=== PATIENT | male | born 1995 | race African-American/Black ===

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

== ENCOUNTER 2017-02-02 20:28 | Emergency (ER) | payer MEDICAID ==
[~2017-02-02] VITALS: Ht 180.3 cm; Wt 99.8 kg
[2017-02-02] MEDS ORDERED: HALOPERIDOL LACTATE 5 MG/ML INJ VIAL ONE (21:15)
[2017-02-02] MEDS ORDERED: diphenhdrAMINE HCL 50 MG/1 ML VL ONE (21:15)
[2017-02-02] MEDS ORDERED: LORazepam 2MG/ML-1ML VIAL ONE (21:15)
[2017-02-02 21:41] LABS: Basophils # (auto) 0 uL; Basophils % (auto) 0.6 % (0.0-2.0); Eosinophils # (auto) 0.3 uL; Eosinophils % (auto) 4.2 % (0.0-7.0); Hematocrit 46.7 % (41.0-53.0); Hemoglobin 15.8 g/dL (13.5-17.5); Lymphocytes # (auto) 3.6 uL; Mean Corpuscular Hemoglobin 31.5 pg (28.0-32.0); Mean Corpuscular Hgb Conc. 33.9 g/dL (32.0-36.0); Mean Platelet Volume 8.5 fL (6.9-10.8); Monocytes # (auto) 0.6 uL; Monocytes % (auto) 7.5 % (0.0-12.0); Neutrophils % (auto) 39.7 % (37.0-80.0); Nucleated Red Blood Cells % 0.1 %; Platelet Count (auto) 303 10^3/uL (140-450); Red Cell Distribution Width 13.4 % (11.8-14.3); White Blood Cell 7.5 10^3/uL (4.4-10.8)
[2017-02-02 21:50] LABS: Albumin 4.2 g/dL (3.4-5.0); BUN/Creatinine Ratio 6.6; Bilirubin, Total 0.3 mg/dL (0.2-1.0); Calcium 9.1 mg/dL (8.5-10.1); Potassium 3.3 mmol/L (3.5-5.1); Total Protein 7.7 g/dL (6.4-8.2)
[2017-02-03 02:36] LABS: Urine Bilirubin Negative (Negative); Urine Blood Negative /uL (Negative); Urine Color Yellow (Yellow); Urine Glucose Normal (Normal); Urine Ketone 1+ (Negative); Urine Mucus FEW (None Seen); Urine Nitrite Negative (Negative); Urine RBC 7 /hpf (0 - 3); Urine Squamous Epithelial Cell FEW /hpf (<5); Urine WBC Clumps PRESENT /hpf (None Seen); Urine pH 5.5 (5.0-8.0)
[2017-02-03] MEDS ORDERED: SODIUM CHLORIDE 0.9% 1,000 ML IV ONE (03:00)
[2017-02-03] MEDS ORDERED: cefTRIAXone 1GM/50ML D5W 50 ML IV ONE (03:00)
[2017-02-03] MEDS ORDERED: HALOPERIDOL LACTATE 5 MG/ML INJ VIAL IM ONE (04:00)
[2017-02-03] MEDS ORDERED: LEVOFLOXACIN 500MG 100 ML IV ONE (04:00)
[2017-02-03] MEDS ORDERED: diphenhdrAMINE HCL 50 MG/1 ML VL IM ONE (04:00)
[2017-02-03] MEDS ORDERED: LORazepam 2MG/ML-1ML VIAL IM ONE (04:00)
[2017-02-03 09:38] VITALS: BP 125/92
== END 2017-02-03 11:39 | disposition home or self-care (01) ==
LOC: EDBD 20:28 → ER 20:39
DX: R41.82 Altered mental status, unspecified (principal); R45.851 Suicidal ideations; N39.0 Urinary tract infection, site not specified; Z88.0 Allergy status to penicillin; F17.210 Nicotine dependence, cigarettes, uncomplicated; Z59.0 Homelessness; Z00.8 Encounter for other general examination
CPT/HCPCS: 36415; 80053; 80307; 80320; 81001; 85025; 96361; 96365; 96372; 99284; J1200; J1630; J1956; J2060; J7030

== ENCOUNTER 2017-02-25 12:40 | Emergency (ER) | payer MEDICAID ==
[~2017-02-25] VITALS: Ht 177.8 cm; Wt 86.2 kg
[2017-02-25 13:14] LABS: Urine Bilirubin Negative (Negative); Urine Blood TRACE /uL (Negative); Urine Color Yellow (Yellow); Urine Glucose Normal (Normal); Urine Ketone 1+ (Negative); Urine Nitrite Negative (Negative); Urine RBC 8 /hpf (0 - 3); Urine Squamous Epithelial Cell FEW /hpf (<5); Urine pH 6.5 (5.0-8.0)
[2017-02-25 15:31] VITALS: BP 133/62
== END 2017-02-25 16:28 | disposition home or self-care (01) ==
LOC: ER 12:40
DX: J45.909 Unspecified asthma, uncomplicated (principal); N39.0 Urinary tract infection, site not specified; R04.0 Epistaxis; F17.210 Nicotine dependence, cigarettes, uncomplicated; Z59.0 Homelessness
CPT/HCPCS: 71020; 81001; 93005

== ENCOUNTER 2018-10-29 14:23 | Emergency (ER) | payer MEDICAID ==
[~2018-10-29] VITALS: Ht 180.3 cm; Wt 85.3 kg
[2018-10-29 16:07] VITALS: BP 147/73
[2018-10-29] MEDS ORDERED: ONDANSETRON ODT 4 MG TAB PO ONE (16:45)
[2018-10-29 17:04] LABS: Urine Bacteria NONE SEEN /hpf (None Seen); Urine Blood Negative /uL (Negative); Urine Mucus FEW (None Seen); Urine Specific Gravity 1.029 (1.001-1.035); Urine WBC 2 /hpf (0 - 3)
== END 2018-10-29 17:17 | disposition home or self-care (01) ==
LOC: ER 14:31
DX: J02.9 Acute pharyngitis, unspecified (principal); R11.0 Nausea; F17.210 Nicotine dependence, cigarettes, uncomplicated; F12.10 Cannabis abuse, uncomplicated
CPT/HCPCS: 71046; 81001; 93005; 99284; Q0162

== ENCOUNTER 2020-07-30 02:38 | Emergency (ER) | payer SELFPAY ==
[~2020-07-30] VITALS: Ht 182.9 cm; Wt 79.4 kg
[2020-07-30 02:41] VITALS: BP 128/53
[2020-07-30 04:09] LABS: Urine Amorphous Crystal FEW /hpf (None Seen); Urine Bacteria FEW /hpf (None Seen); Urine Blood Negative /uL (Negative); Urine Hyaline Cast FEW /lpf (0 - 2); Urine Mucus FEW (None Seen); Urine Specific Gravity 1.028 (1.001-1.035); Urine WBC <1 /hpf (0 - 3)
[2020-07-30 04:22] LABS: Alcohol, Urine < 3.0 mg/dL (0-10); Amphetamine Screen, Urine POSITIVE (NEGATIVE); Barbiturate Scree,Urine NEGATIVE (NEGATIVE); Benzodiazephine Screen, Urine NEGATIVE (NEGATIVE); Cannabinoid Screen, Urine POSITIVE (NEGATIVE); Cocaine Screen, Urine NEGATIVE (NEGATIVE); Opiate Scree,Urine NEGATIVE (NEGATIVE); Phencyclidine Screen, Urine NEGATIVE (NEGATIVE)
== END 2020-07-30 04:15 | disposition left against medical advice (07) ==
LOC: ER 02:44
DX: R21 Rash and other nonspecific skin eruption (principal); R22.33 Localized swelling, mass and lump, upper limb, bilateral; R22.2 Localized swelling, mass and lump, trunk; Z53.21 Procedure and treatment not carried out due to patient leaving prior to being seen by health care provider
CPT/HCPCS: 80307; 81001; J7030

== ENCOUNTER 2020-11-02 00:32 | Emergency (ER) | payer SELFPAY ==
[~2020-11-02] VITALS: Ht 182.9 cm; Wt 86.2 kg
[2020-11-02 00:35] VITALS: BP 131/88
== END 2020-11-02 05:44 | disposition home or self-care (01) ==
LOC: EDBD 00:32 → ER 00:41
DX: S23.41XA Sprain of ribs, initial encounter (principal); S73.101A Unspecified sprain of right hip, initial encounter; R51.9 Headache, unspecified; F17.210 Nicotine dependence, cigarettes, uncomplicated; F12.10 Cannabis abuse, uncomplicated; J45.909 Unspecified asthma, uncomplicated; Z88.0 Allergy status to penicillin; Y08.89XA Assault by other specified means, initial encounter; Y93.89 Activity, other specified; Y92.89 Other specified places as the place of occurrence of the external cause; Y99.8 Other external cause status
CPT/HCPCS: 70450; 71250; 73502

== ENCOUNTER 2022-12-26 07:41 | Emergency (ER) | payer MEDICAID ==
[~2022-12-26] VITALS: Ht 170.2 cm; Wt 54.0 kg
[2022-12-26 08:28] VITALS: BP 145/73; PULSE 105; RESP 18; TEMP 97.4; O2SAT 99
[2022-12-26] MEDS ORDERED: RIS1T PO (22:04)
[2022-12-26] MEDS ORDERED: OLAN20TA PO (22:04)
== END 2022-12-26 09:14 | disposition home or self-care (01) ==
LOC: EDUNIT# 07:41 → EDBD 07:41 → ER 07:41
DX: F15.90 Other stimulant use, unspecified, uncomplicated (principal); F17.210 Nicotine dependence, cigarettes, uncomplicated; F12.90 Cannabis use, unspecified, uncomplicated; J45.909 Unspecified asthma, uncomplicated; Z88.0 Allergy status to penicillin

== ENCOUNTER → 2022-12-26 | Emergency (ER) | payer MEDICAID ==
[~2022-12-26] VITALS: Ht 180.3 cm; Wt 73.0 kg
[~2022-12-26] MED LIST: OLAN20TA PO; OLANZapine 5 MG TAB PO ONE; RIS1T PO; risperiDONE 1 MG TAB PO ONE
[2022-12-26 19:05] VITALS: BP 132/96; PULSE 128; RESP 18; O2SAT 98
== END | disposition home or self-care (01) ==
LOC: ER 19:05
DX: F20.9 Schizophrenia, unspecified (principal); J45.909 Unspecified asthma, uncomplicated; F17.210 Nicotine dependence, cigarettes, uncomplicated; Z76.0 Encounter for issue of repeat prescription

== ENCOUNTER 2022-12-27 09:19 | Emergency (ER) | payer MEDICAID ==
[~2022-12-27] VITALS: Ht 182.9 cm; Wt 74.7 kg
[~2022-12-27 09:19] MED LIST changes: -OLANZapine 5 MG TAB PO ONE; -risperiDONE 1 MG TAB PO ONE
[2022-12-27 09:24] VITALS: BP 121/82; TEMP 97.3
[2022-12-27 10:30] VITALS: PULSE 88; RESP 16; O2SAT 100
== END 2022-12-27 10:49 | disposition home or self-care (01) ==
LOC: ER 09:19
DX: J45.909 Unspecified asthma, uncomplicated (principal); F17.210 Nicotine dependence, cigarettes, uncomplicated

== ENCOUNTER 2022-12-30 07:05 | Emergency (ER) | payer MEDICAID ==
[~2022-12-30] VITALS: Ht 180.3 cm; Wt 72.1 kg
[2022-12-30 07:41] VITALS: BP 135/76; PULSE 88; RESP 16; TEMP 97.8; O2SAT 98
[2022-12-30] MEDS ORDERED: IPRATROPIUM BROM 0.5 MG/2.5ML INH SOL NEB ONE (08:15)
[2022-12-30] MEDS ORDERED: ALBUTEROL SULF 2.5 MG/0.5ML(0.5%) NEB SOLN NEB ONE (08:15)
[2022-12-30] MEDS ORDERED: AZIT-81 PO ×3 (08:45→08:55)
[2022-12-30] MEDS ORDERED: PROM1SOL4 PO ×3 (08:45→08:55)
[2022-12-30] MEDS ORDERED: ALBU108A5 IN ×3 (08:45→08:55)
[2022-12-30] MEDS ORDERED: AZITTAB PO (23:31)
[2022-12-30] MEDS ORDERED: ALBUAER3 IN (23:31)
[2022-12-30] MEDS ORDERED: PRED20TA2 PO (23:31)
== END 2022-12-30 08:55 | disposition home or self-care (01) ==
LOC: ER 07:05
DX: J45.901 Unspecified asthma with (acute) exacerbation (principal); J03.90 Acute tonsillitis, unspecified; F17.210 Nicotine dependence, cigarettes, uncomplicated
CPT/HCPCS: 71045; 94640; 99283; J7644

== ENCOUNTER 2022-12-30 21:58 | Emergency (ER) | payer MEDICAID ==
[~2022-12-30] VITALS: Ht 180.3 cm; Wt 76.0 kg
[~2022-12-30 21:58] MED LIST changes: +ALBU108A5 IN; +AZIT-81 PO; +PROM1SOL4 PO
[2022-12-30 22:23] LABS: Basophils # (auto) 0 10 ^3/uL (0-0.2); Basophils % (auto) 0.6 % (0.0-2.0); Eosinophils # (auto) 0.2 10 ^3/uL (0-0.8); Eosinophils % (auto) 2.2 % (0.0-7.0); Hematocrit 42.7 % (41.0-53.0); Hemoglobin 14.1 g/dL (13.5-17.5); Lymphocytes # (auto) 2.9 10 ^3/uL (0.4-5.4); Lymphocytes % (auto) 40.6 % (10.0-50.0); Mean Corpuscular Hemoglobin 30.1 pg (28.0-32.0); Mean Corpuscular Hgb Conc. 33.1 g/dL (32.0-36.0); Monocytes # (auto) 0.6 10 ^3/uL (0-1.3); Monocytes % (auto) 8.1 % (0.0-12.0); Neutrophils # (auto) 3.4 10 ^3/uL (1.6-8.6); Neutrophils % (auto) 48.5 % (37.0-80.0); Nucleated Red Blood Cells % 0.1 %; White Blood Cell 7.1 10^3/uL (4.4-10.8)
[2022-12-30 22:36] LABS: Albumin 4.2 g/dL (3.2-4.8); Alkaline Phosphatase 85 U/L (46-116); Anion Gap 6.2 (5-15); Aspartate Aminotransferase 12 U/L (13-40); BUN/Creatinine Ratio 7.6 (10.0-20.0); Bilirubin, Total 0.3 mg/dL (0.2-1.0); Blood Urea Nitrogen 9 mg/dL (9-23); Calcium 9.3 mg/dL (8.5-10.1); Carbon Dioxide 25.8 mmol/L (20-30); Chloride 105 mmol/L (98-107); Glucose 130 mg/dL (74-106); Potassium 3.5 mmol/L (3.5-5.1); Sodium 137 mmol/L (136-145); Total Protein 6.9 g/dL (5.7-8.2)
[2022-12-30 22:42] LABS: Alanine Aminotransferase < 9 U/L (7-40)
[2022-12-30] MEDS ORDERED: SODIUM CHLORIDE 0.9% 1,000 ML IV ONE (23:30)
[2022-12-30] MEDS ORDERED: LORazepam 0.5 MG TAB PO ONE (23:30)
[2022-12-30] MEDS ORDERED: ALBUAER3 IN (23:31)
[2022-12-30] MEDS ORDERED: AZITTAB PO (23:31)
[2022-12-30] MEDS ORDERED: PRED20TA2 PO (23:31)
[2022-12-31 02:06] VITALS: BP 125/68; PULSE 116; RESP 19; TEMP 98.9; O2SAT 98
== END 2022-12-31 02:09 | disposition home or self-care (01) ==
LOC: ER 21:58
DX: R07.89 Other chest pain (principal); F12.90 Cannabis use, unspecified, uncomplicated; J20.9 Acute bronchitis, unspecified; J45.909 Unspecified asthma, uncomplicated; F20.9 Schizophrenia, unspecified; F17.210 Nicotine dependence, cigarettes, uncomplicated; Z79.899 Other long term (current) drug therapy; Z88.0 Allergy status to penicillin
CPT/HCPCS: 36415; 71045; 80053; 83880; 84443; 84484; 85025; 93005; 96360; 99285; J7030

== ENCOUNTER 2022-12-31 21:18 | Emergency (ER) | payer MEDICAID ==
[~2022-12-31] VITALS: Ht 182.9 cm; Wt 80.1 kg
[~2022-12-31 21:18] MED LIST changes: +ALBUAER3 IN; +AZITTAB PO; +PRED20TA2 PO
[2022-12-31 21:35] VITALS: BP 123/56; RESP 16; O2SAT 97
[2022-12-31 21:46] VITALS: PULSE 101
== END 2023-01-01 02:45 | disposition left against medical advice (07) ==
LOC: ER 21:20
DX: F99 Mental disorder, not otherwise specified (principal); Z53.21 Procedure and treatment not carried out due to patient leaving prior to being seen by health care provider

== ENCOUNTER 2023-01-15 04:22 | Emergency (ER) | payer MEDICAID ==
[~2023-01-15] VITALS: Ht 182.9 cm; Wt 72.5 kg
[2023-01-15] MEDS ORDERED: MIDAZOLAM HCL 5 MG/ML-1ML VIAL IM ONE (06:15)
[2023-01-15 08:02] VITALS: PULSE 78; RESP 22; O2SAT 97
[2023-01-15 11:28] LABS: Basophils # (auto) 0 10 ^3/uL (0-0.2); Basophils % (auto) 0.6 % (0.0-2.0); Eosinophils # (auto) 0.4 10 ^3/uL (0-0.8); Eosinophils % (auto) 5.9 % (0.0-7.0); Hematocrit 42.2 % (41.0-53.0); Hemoglobin 13.6 g/dL (13.5-17.5); Lymphocytes # (auto) 3.1 10 ^3/uL (0.4-5.4); Lymphocytes % (auto) 40.7 % (10.0-50.0); Mean Corpuscular Hemoglobin 29.8 pg (28.0-32.0); Mean Corpuscular Hgb Conc. 32.1 g/dL (32.0-36.0); Mean Corpuscular Volume 92.9 fL (80.0-100.0); Monocytes # (auto) 0.6 10 ^3/uL (0-1.3); Monocytes % (auto) 8.2 % (0.0-12.0); Neutrophils # (auto) 3.3 10 ^3/uL (1.6-8.6); Neutrophils % (auto) 44.6 % (37.0-80.0); Red Blood Cells 4.55 10^6/uL (4.5-5.90); Red Cell Distribution Width 13.4 % (11.8-14.3); White Blood Cell 7.5 10^3/uL (4.4-10.8)
[2023-01-15 12:13] LABS: Alanine Aminotransferase 14 U/L (7-40); Albumin 3.6 g/dL (3.2-4.8); Alkaline Phosphatase 111 U/L (46-116); Anion Gap 3 (5-15); Aspartate Aminotransferase 20 U/L (13-40); BUN/Creatinine Ratio 17.2 (10.0-20.0); Blood Alcohol < 3.0 mg/dL (<10); Blood Urea Nitrogen 17 mg/dL (9-23); Calcium 8.8 mg/dL (8.7-10.4); Carbon Dioxide 30 mmol/L (20-30); Chloride 106 mmol/L (98-107); Glucose 111 mg/dL (74-106); Potassium 3.9 mmol/L (3.5-5.1); Sodium 139 mmol/L (136-145)
[2023-01-15 12:14] LABS: Bilirubin, Total 0.3 mg/dL (0.2-1.0); Total Protein 5.6 g/dL (5.7-8.2)
[2023-01-15 13:00] VITALS: BP 125/72; TEMP 98.8
[2023-01-15 13:54] LABS: Amphetamine Screen, Urine Pos (NEGATIVE); Barbiturate Scree,Urine Neg (NEGATIVE); Benzodiazephine Screen, Urine Pos (NEGATIVE); Cocaine Screen, Urine Neg (NEGATIVE); Opiate Scree,Urine Neg (NEGATIVE); Phencyclidine Screen, Urine Neg (NEGATIVE)
[2023-01-15 13:55] LABS: Cannabinoid Screen, Urine Pos (NEGATIVE)
[2023-01-15 14:08] LABS: Urine Bacteria NONE SEEN /hpf (None Seen); Urine Blood Negative /uL (Negative); Urine Clarity Clear (Clear); Urine Color Yellow (Yellow); Urine Protein, UAD Negative (Negative); Urine Specific Gravity 1.025 (1.001-1.035); Urine Urobilinogen Normal (Negative); Urine WBC 1 /hpf (0 - 3); Urine pH 6.5 (5.0-8.0)
[2023-01-15] MEDS ORDERED: LORazepam 2MG/ML-1ML VIAL IV ONE (17:45)
[2023-01-15] MEDS ORDERED: LORazepam 2MG/ML-1ML VIAL IM ONE (18:00)
[2023-01-15 20:00] VITALS: PULSE 80; RESP 18; O2SAT 98
== END 2023-01-15 19:40 | disposition home or self-care (01) ==
LOC: EDBD 04:22 → ER 04:22
DX: F15.10 Other stimulant abuse, uncomplicated (principal); F41.9 Anxiety disorder, unspecified; F20.9 Schizophrenia, unspecified; J45.909 Unspecified asthma, uncomplicated; F17.210 Nicotine dependence, cigarettes, uncomplicated; F19.90 Other psychoactive substance use, unspecified, uncomplicated; Z79.899 Other long term (current) drug therapy
CPT/HCPCS: 36415; 71045; 80053; 80307; 80320; 81001; 85025; 96372; 99285; J2060; J2250

== ENCOUNTER 2023-04-19 01:27 | Emergency (ER) | payer MEDICAID ==
[~2023-04-19] VITALS: Ht 182.9 cm; Wt 71.4 kg
[~2023-04-19 01:27] MED LIST changes: +ACET500T58 PO; +CEPH500C PO; +CLIN300C70 PO
[2023-04-19 06:37] VITALS: BP 110/74; PULSE 105; RESP 15; TEMP 98; O2SAT 99
== END 2023-04-19 06:41 | disposition home or self-care (01) ==
LOC: ER 01:27
DX: L03.116 Cellulitis of left lower limb (principal); F15.10 Other stimulant abuse, uncomplicated; F12.10 Cannabis abuse, uncomplicated; J45.909 Unspecified asthma, uncomplicated; F17.210 Nicotine dependence, cigarettes, uncomplicated; Z88.0 Allergy status to penicillin

== ENCOUNTER 2023-04-19 15:01 | Emergency (ER) | payer MEDICAID ==
[~2023-04-19] VITALS: Ht 180.3 cm; Wt 70.7 kg
[2023-04-19 15:22] VITALS: BP 107/68; PULSE 115; RESP 16; TEMP 99.4; O2SAT 99
== END 2023-04-19 15:49 | disposition home or self-care (01) ==
LOC: ER 15:01
DX: Z48.00 Encounter for change or removal of nonsurgical wound dressing (principal); J45.909 Unspecified asthma, uncomplicated; F17.210 Nicotine dependence, cigarettes, uncomplicated; F12.10 Cannabis abuse, uncomplicated; F15.10 Other stimulant abuse, uncomplicated; Z88.0 Allergy status to penicillin

== ENCOUNTER 2023-04-21 01:52 | Inpatient (IN) | payer MEDICAID ==
[~2023-04-21] VITALS: Ht 182.9 cm; Wt 71.6 kg
[2023-04-21 03:27] VITALS: PULSE 112; RESP 12; O2SAT 97
[2023-04-21] MEDS ORDERED: diphenhdrAMINE HCL 50 MG/1 ML VL IV ONE (04:00)
[2023-04-21] MEDS ORDERED: VANCOMYCIN 1GM/200ML 200 ML IV ONE (04:15)
[2023-04-21] MEDS ORDERED: LORazepam 2MG/ML-1ML VIAL IV ONE (04:15)
[2023-04-21] MEDS ORDERED: LACTATED RINGER'S 1,950 ML IV ONE (04:15)
[2023-04-21] MEDS ORDERED: MIDAZOLAM HCL 2MG/2ML 2ml VIAL (1mg/ml) IV ONE (04:30)
[2023-04-21 04:50] LABS: Basophils # (auto) 0 10 ^3/uL (0-0.2); Eosinophils # (auto) 0.1 10 ^3/uL (0-0.8); Hemoglobin 12.1 g/dL (13.5-17.5); Lymphocytes # (auto) 2.1 10 ^3/uL (0.4-5.4); Monocytes # (auto) 0.5 10 ^3/uL (0-1.3); Monocytes % (auto) 6.8 % (0.0-12.0); Neutrophils # (auto) 4.3 10 ^3/uL (1.6-8.6)
[2023-04-21 04:51] LABS: Basophils % (auto) 0.5 % (0.0-2.0); Eosinophils % (auto) 2.1 % (0.0-7.0); Lymphocytes % (auto) 29.9 % (10.0-50.0); Mean Corpuscular Hemoglobin 31.3 pg (28.0-32.0); Mean Corpuscular Hgb Conc. 33.6 g/dL (32.0-36.0); Mean Corpuscular Volume 93.3 fL (80.0-100.0); Neutrophils % (auto) 60.7 % (37.0-80.0); Red Blood Cells 3.86 10^6/uL (4.5-5.90); Red Cell Distribution Width 12.7 % (11.8-14.3)
[2023-04-21 04:58] LABS: Alanine Aminotransferase 13 U/L (7-40); Alkaline Phosphatase 83 U/L (46-116); Anion Gap 7 (5-15); Aspartate Aminotransferase 19 U/L (13-40); BUN/Creatinine Ratio 8.5 (10.0-20.0); Blood Urea Nitrogen 7 mg/dL (9-23); Calcium 9.4 mg/dL (8.5-10.1); Carbon Dioxide 28 mmol/L (20-30); Chloride 103 mmol/L (98-107); Glucose 127 mg/dL (74-106); Potassium 3.6 mmol/L (3.5-5.1); Sodium 138 mmol/L (136-145)
[2023-04-21 04:59] LABS: Albumin 3.9 g/dL (3.2-4.8); Bilirubin, Total 0.2 mg/dL (0.2-1.0); Total Protein 7.7 g/dL (5.7-8.2)
[2023-04-21 05:24] LABS: Erythrocyte Sedimentation Rate 85 mm/hr (0-20)
[2023-04-21] MEDS ORDERED: ACETAMINOPHEN 325 MG TAB PO PRN (05:45)
[2023-04-21] MEDS ORDERED: ONDANSETRON HCL 4 MG/2 ML VIAL IV PRN (05:45)
[2023-04-21] MEDS: PIPERACILLIN-TAZOB 3.375GM 100 ML IV ONE ×2 (06:08→06:13)
[2023-04-21 08:05] VITALS: PULSE 93; RESP 16; O2SAT 98
[2023-04-21 09:00] VITALS: BP 114/56; PULSE 93; RESP 16; TEMP 98.2; O2SAT 98
[2023-04-21] MEDS: HYDROcodone-ACET 5/325MG TAB PO PRN ×2 (09:26→18:51)
[2023-04-21] MEDS: hydrOXYzine 25 MG TAB or CAP PO PRN ×2 (09:26→16:58)
[2023-04-21] MEDS: cefTRIAXone 1GM/50ML D5W 50 ML IV SCH (09:26)
[2023-04-21] MEDS: busPIRone HCL 10 MG TAB PO SCH ×2 (11:17→21:25)
[2023-04-21 12:49] VITALS: BP 98/57; PULSE 98; RESP 14; TEMP 97.8; O2SAT 95
[2023-04-21] MEDS: CLINDAMYCIN 600MG IV 50 ML IV SCH ×3 (14:00→21:29)
[2023-04-21] MEDS ORDERED: LORazepam 0.5 MG TAB PO PRN (14:00)
[2023-04-21] MEDS ORDERED: diphenhdrAMINE HCL 25 MG CAP PO PRN (14:00)
[2023-04-21 14:44] LABS: Amphetamine Screen, Urine Pos (NEGATIVE)
[2023-04-21 14:45] LABS: Barbiturate Scree,Urine Neg (NEGATIVE); Benzodiazephine Screen, Urine Pos (NEGATIVE); Cocaine Screen, Urine Neg (NEGATIVE)
[2023-04-21 14:46] LABS: Cannabinoid Screen, Urine Pos (NEGATIVE); Opiate Scree,Urine Neg (NEGATIVE); Phencyclidine Screen, Urine Neg (NEGATIVE)
[2023-04-21 17:00] VITALS: BP 126/69; PULSE 93; RESP 14; TEMP 98.2; O2SAT 98
[2023-04-21 20:00] VITALS: PULSE 93; RESP 16; O2SAT 98
[2023-04-21] MEDS: OLANZapine 5 MG TAB PO SCH (21:26)
[2023-04-22] MEDS: CLINDAMYCIN 600MG IV 50 ML IV SCH ×3 (06:12→21:25)
[2023-04-22] MEDS: busPIRone HCL 10 MG TAB PO SCH ×2 (08:39→21:24)
[2023-04-22] MEDS: cefTRIAXone 1GM/50ML D5W 50 ML IV SCH (08:42)
[2023-04-22 10:53] VITALS: BP 110/71; PULSE 73; RESP 16; TEMP 98; O2SAT 95
[2023-04-22 13:11] LABS: Basophils # (auto) 0 10 ^3/uL (0-0.2); Basophils % (auto) 0.6 % (0.0-2.0); Eosinophils # (auto) 0.2 10 ^3/uL (0-0.8); Mean Corpuscular Hemoglobin 30.7 pg (28.0-32.0); Mean Corpuscular Hgb Conc. 33.1 g/dL (32.0-36.0); Monocytes # (auto) 0.5 10 ^3/uL (0-1.3)
[2023-04-22 13:15] LABS: Eosinophils % (auto) 3.1 % (0.0-7.0); Hemoglobin 12.9 g/dL (13.5-17.5); Lymphocytes # (auto) 2.5 10 ^3/uL (0.4-5.4); Lymphocytes % (auto) 36.2 % (10.0-50.0); Mean Corpuscular Volume 92.7 fL (80.0-100.0); Monocytes % (auto) 7.5 % (0.0-12.0); Neutrophils # (auto) 3.7 10 ^3/uL (1.6-8.6); Neutrophils % (auto) 52.6 % (37.0-80.0); Nucleated Red Blood Cells % 0.1 %; Red Blood Cells 4.21 10^6/uL (4.5-5.90)
[2023-04-22 13:30] LABS: Alanine Aminotransferase 10 U/L (7-40); Albumin 3.8 g/dL (3.2-4.8); Alkaline Phosphatase 74 U/L (46-116); Anion Gap 4 (5-15); Aspartate Aminotransferase 12 U/L (13-40); BUN/Creatinine Ratio 10.6 (10.0-20.0); Bilirubin, Total < 0.2 mg/dL (0.2-1.0); Blood Urea Nitrogen 12 mg/dL (9-23); Calcium 9.3 mg/dL (8.5-10.1); Carbon Dioxide 31 mmol/L (20-30); Chloride 103 mmol/L (98-107); Glucose 120 mg/dL (74-106); Potassium 4.3 mmol/L (3.5-5.1); Sodium 138 mmol/L (136-145); Total Protein 7.5 g/dL (5.7-8.2)
[2023-04-22] MEDS: HYDROcodone-ACET 5/325MG TAB PO PRN ×2 (16:11→21:24)
[2023-04-22 16:14] VITALS: BP 122/81; PULSE 66; RESP 14; O2SAT 95
[2023-04-22 20:00] VITALS: BP 122/67; PULSE 73; PULSE 76; RESP 16; TEMP 97.4; O2SAT 100
[2023-04-22] MEDS: MUPIROCIN 2% OINT 15gm or 22gm FOR MRSA NARES EACHNOSTRI SCH (21:19)
[2023-04-22] MEDS: OLANZapine 5 MG TAB PO SCH (21:24)
[2023-04-22 22:00] VITALS: BP 122/67; PULSE 73; RESP 16; TEMP 97.4; O2SAT 100
[2023-04-23 05:00] VITALS: TEMP 97.1
[2023-04-23] MEDS: CLINDAMYCIN 600MG IV 50 ML IV SCH ×3 (05:25→22:32)
[2023-04-23 08:00] VITALS: BP 104/57; PULSE 104; RESP 18; TEMP 97.1; O2SAT 97
[2023-04-23 09:00] VITALS: BP 119/57; PULSE 104; RESP 18; O2SAT 97
[2023-04-23] MEDS: MUPIROCIN 2% OINT 15gm or 22gm FOR MRSA NARES EACHNOSTRI SCH ×2 (09:25→22:29)
[2023-04-23] MEDS: cefTRIAXone 1GM/50ML D5W 50 ML IV SCH (09:25)
[2023-04-23] MEDS: busPIRone HCL 10 MG TAB PO SCH ×2 (09:25→22:29)
[2023-04-23 13:00] VITALS: BP 125/75; PULSE 88; RESP 18; TEMP 98; O2SAT 97
[2023-04-23] MEDS: HYDROcodone-ACET 5/325MG TAB PO PRN ×2 (15:45→22:29)
[2023-04-23 17:00] VITALS: BP 118/67; PULSE 82; RESP 18; TEMP 98.2; O2SAT 97
[2023-04-23 22:05] VITALS: BP 114/62; PULSE 71; RESP 18; O2SAT 97
[2023-04-23] MEDS: OLANZapine 5 MG TAB PO SCH (22:29)
[2023-04-24 05:00] VITALS: BP 125/69; PULSE 84; RESP 18; O2SAT 97
[2023-04-24] MEDS: CLINDAMYCIN 600MG IV 50 ML IV SCH (05:54)
[2023-04-24 08:00] VITALS: BP 118/80; PULSE 85; RESP 16; TEMP 97.6; O2SAT 97
[2023-04-24] MEDS: busPIRone HCL 10 MG TAB PO SCH (08:16)
[2023-04-24] MEDS: cefTRIAXone 1GM/50ML D5W 50 ML IV SCH (08:17)
[2023-04-24 08:51] VITALS: BP 118/80; PULSE 85; RESP 16; TEMP 97.6; O2SAT 97
[2023-04-24] MEDS: MUPIROCIN 2% OINT 15gm or 22gm FOR MRSA NARES EACHNOSTRI SCH (09:20)
[2023-04-24] MEDS ORDERED: HYDR-4902 PO (10:22)
[2023-04-24] MEDS ORDERED: LINE1TAB6 PO (10:22)
[2023-04-24] MEDS ORDERED: MUPI2CRE17 EX (10:31)
[2023-04-24] MEDS ORDERED: LINEZOLID 600MG TABLET PO SCH (11:00)
[2023-04-24] MEDS ORDERED: LINEZOLID 600MG TABLET PO ONE (11:00)
[2023-04-24] MEDS: HYDROcodone-ACET 5/325MG TAB PO PRN (12:51)
[2023-04-24 13:24] VITALS: BP 116/75; PULSE 95; RESP 18; TEMP 36.4; O2SAT 97
== END 2023-04-24 15:00 | disposition home or self-care (01) | DRG 383 ==
LOC: ER 01:52 → EDBD 01:52 → OVERFLOW 05:44 → EAST 07:47 → CENTRAL 19:17
PROVIDERS: ADMIT Family Medicine; ATTEND Family Medicine
DX: L03.116 Cellulitis of left lower limb (principal); N17.0 Acute kidney failure with tubular necrosis; B95.62 Methicillin resistant Staphylococcus aureus infection as the cause of diseases classified elsewhere; F15.10 Other stimulant abuse, uncomplicated; F17.210 Nicotine dependence, cigarettes, uncomplicated; F20.9 Schizophrenia, unspecified; J45.909 Unspecified asthma, uncomplicated; Z88.0 Allergy status to penicillin; Z59.00 Homelessness unspecified
CPT/HCPCS: 36415; 80053; 80307; 83605; 85025; 85652; 86141; 87077; 87081; 87186; 87205; 96365; 96375; G0378; J2250; J2543; J3490

== ENCOUNTER 2023-05-01 22:51 | Emergency (ER) | payer MEDICAID ==
[~2023-05-01] VITALS: Ht 182.9 cm; Wt 68.0 kg
[~2023-05-01 22:51] MED LIST changes: +HYDR-4902 PO; +LINE1TAB6 PO; +MUPI2CRE17 EX
[2023-05-01] MEDS ORDERED: SODIUM CHLORIDE 0.9% 1,000 ML IV ONE (23:30)
[2023-05-02 00:38] LABS: Basophils # (auto) 0 10 ^3/uL (0-0.2); Basophils % (auto) 0.6 % (0.0-2.0); Eosinophils # (auto) 0.1 10 ^3/uL (0-0.8); Eosinophils % (auto) 1.4 % (0.0-7.0); Hemoglobin 12.6 g/dL (13.5-17.5); Lymphocytes # (auto) 3.1 10 ^3/uL (0.4-5.4); Lymphocytes % (auto) 36.2 % (10.0-50.0); Mean Corpuscular Hemoglobin 30.6 pg (28.0-32.0); Mean Corpuscular Hgb Conc. 33.3 g/dL (32.0-36.0); Mean Corpuscular Volume 92.1 fL (80.0-100.0); Monocytes # (auto) 0.4 10 ^3/uL (0-1.3); Monocytes % (auto) 5.1 % (0.0-12.0); Neutrophils # (auto) 4.9 10 ^3/uL (1.6-8.6); Neutrophils % (auto) 56.7 % (37.0-80.0); Red Blood Cells 4.13 10^6/uL (4.5-5.90); Red Cell Distribution Width 13.3 % (11.8-14.3); White Blood Cell 8.7 10^3/uL (4.4-10.8)
[2023-05-02 00:59] LABS: Albumin 4.2 g/dL (3.2-4.8); Alkaline Phosphatase 99 U/L (46-116); Anion Gap 9 (5-15); Aspartate Aminotransferase 23 U/L (13-40); Bilirubin, Total 0.3 mg/dL (0.2-1.0); Blood Urea Nitrogen 10 mg/dL (9-23); Calcium 9.4 mg/dL (8.7-10.4); Carbon Dioxide 27 mmol/L (20-30); Chloride 102 mmol/L (98-107); Glucose 154 mg/dL (74-106); Potassium 3.2 mmol/L (3.5-5.1); Sodium 138 mmol/L (136-145); Total Protein 7.6 g/dL (5.7-8.2)
[2023-05-02 01:13] LABS: Alanine Aminotransferase < 9 U/L (7-40)
[2023-05-02 01:26] LABS: Erythrocyte Sedimentation Rate 36 mm/hr (0-20)
[2023-05-02 03:34] LABS: Blood Alcohol < 3.0 mg/dL (<10)
[2023-05-02 03:46] VITALS: BP 123/90; PULSE 86; RESP 19; TEMP 98; O2SAT 100
[2023-05-02] MEDS ORDERED: CLIN150C PO (04:01)
== END 2023-05-02 04:18 | disposition home or self-care (01) ==
LOC: EDBD 22:51 → ER 22:51 → EDUNIT# 22:51 → ER 05-02 04:18
DX: R55 Syncope and collapse (principal); L03.116 Cellulitis of left lower limb; F15.10 Other stimulant abuse, uncomplicated; I10 Essential (primary) hypertension; E11.9 Type 2 diabetes mellitus without complications; J45.909 Unspecified asthma, uncomplicated; F17.210 Nicotine dependence, cigarettes, uncomplicated; F12.10 Cannabis abuse, uncomplicated; Z79.2 Long term (current) use of antibiotics; Z79.899 Other long term (current) drug therapy; Z88.0 Allergy status to penicillin
CPT/HCPCS: 36415; 70450; 71250; 72125; 73700; 74176; 80053; 80320; 85025; 85652; 93005; 96360; 99284; J7030

== ENCOUNTER 2023-05-07 02:30 | Emergency (ER) | payer MEDICAID ==
[~2023-05-07] VITALS: Ht 182.9 cm; Wt 70.3 kg
[~2023-05-07 02:30] MED LIST changes: +CLIN150C PO
[2023-05-07 04:33] LABS: Basophils # (auto) 0.1 10 ^3/uL (0-0.2); Basophils % (auto) 0.7 % (0.0-2.0); Eosinophils # (auto) 0.2 10 ^3/uL (0-0.8); Eosinophils % (auto) 2.5 % (0.0-7.0); Hematocrit 36.6 % (41.0-53.0); Hemoglobin 12.1 g/dL (13.5-17.5); Lymphocytes # (auto) 2.9 10 ^3/uL (0.4-5.4); Lymphocytes % (auto) 37.3 % (10.0-50.0); Mean Corpuscular Hemoglobin 30.4 pg (28.0-32.0); Mean Corpuscular Hgb Conc. 33.1 g/dL (32.0-36.0); Monocytes # (auto) 0.4 10 ^3/uL (0-1.3); Monocytes % (auto) 5.1 % (0.0-12.0); Neutrophils # (auto) 4.3 10 ^3/uL (1.6-8.6); Neutrophils % (auto) 54.4 % (37.0-80.0); Red Blood Cells 3.98 10^6/uL (4.5-5.90); Red Cell Distribution Width 13.7 % (11.8-14.3); White Blood Cell 7.8 10^3/uL (4.4-10.8)
[2023-05-07 04:56] LABS: Albumin 4.1 g/dL (3.2-4.8); Alkaline Phosphatase 77 U/L (46-116); Anion Gap 8 (5-15); Aspartate Aminotransferase 24 U/L (13-40); Bilirubin, Total 0.4 mg/dL (0.2-1.0); Blood Urea Nitrogen 11 mg/dL (9-23); Calcium 9.3 mg/dL (8.7-10.4); Carbon Dioxide 26 mmol/L (20-30); Chloride 102 mmol/L (98-107); Glucose 149 mg/dL (74-106); Potassium 3.5 mmol/L (3.5-5.1); Sodium 136 mmol/L (136-145); Total Protein 7.4 g/dL (5.7-8.2)
[2023-05-07 05:01] LABS: Alanine Aminotransferase 9 U/L (7-40)
[2023-05-07 05:45] VITALS: BP 132/78; PULSE 95; RESP 18; TEMP 98; O2SAT 98
[2023-05-10] MEDS ORDERED: CLIN300C70 PO (09:04)
== END 2023-05-07 05:48 | disposition home or self-care (01) ==
LOC: ER 02:30 → EDBD 02:30 → ER 05:48
DX: R55 Syncope and collapse (principal); R07.89 Other chest pain; I10 Essential (primary) hypertension; E11.9 Type 2 diabetes mellitus without complications; J45.909 Unspecified asthma, uncomplicated; F17.210 Nicotine dependence, cigarettes, uncomplicated; Z59.00 Homelessness unspecified; Z79.2 Long term (current) use of antibiotics; Z79.899 Other long term (current) drug therapy; Z88.0 Allergy status to penicillin
CPT/HCPCS: 36415; 71045; 80053; 84484; 85025; 93005

== ENCOUNTER 2023-05-18 15:24 | Emergency (ER) | payer MEDICAID ==
[~2023-05-18] VITALS: Ht 180.3 cm; Wt 75.0 kg
[2023-05-18 15:43] VITALS: BP 127/82; PULSE 105; RESP 20; O2SAT 99
[2023-05-18] MEDS ORDERED: MECLIZINE HCL 25 MG TAB PO ONE (16:00)
== END 2023-05-18 16:20 | disposition left against medical advice (07) ==
LOC: ER 15:24 → EDUNIT# 15:24 → EDBD 15:24 → ER 16:06
DX: R42 Dizziness and giddiness (principal); J45.909 Unspecified asthma, uncomplicated; I10 Essential (primary) hypertension; F17.210 Nicotine dependence, cigarettes, uncomplicated; F12.10 Cannabis abuse, uncomplicated; F15.10 Other stimulant abuse, uncomplicated; Z59.00 Homelessness unspecified

== ENCOUNTER 2023-05-22 03:01 | Emergency (ER) | payer MEDICAID ==
[~2023-05-22] VITALS: Ht 175.3 cm; Wt 63.5 kg
[2023-05-22] MEDS ORDERED: CLIN300C70 PO (04:59)
[2023-05-22] MEDS ORDERED: cefTRIAXone SOD 1,000 MG VL IM ONE (05:00)
[2023-05-22 05:06] VITALS: BP 144/75; PULSE 85; RESP 22; TEMP 98; O2SAT 98
[2023-05-22] MEDS ORDERED: OLANZapine 5 MG TAB PO ONE (05:15)
== END 2023-05-22 07:11 | disposition home or self-care (01) ==
LOC: ER 03:01 → EDBD 03:01 → ER 06:59
DX: L03.116 Cellulitis of left lower limb (principal); F15.10 Other stimulant abuse, uncomplicated; F12.90 Cannabis use, unspecified, uncomplicated; F20.9 Schizophrenia, unspecified; F17.210 Nicotine dependence, cigarettes, uncomplicated; Z48.00 Encounter for change or removal of nonsurgical wound dressing; Z88.8 Allergy status to other drugs, medicaments and biological substances; Z79.899 Other long term (current) drug therapy
CPT/HCPCS: 96372; 99283; J0696

== ENCOUNTER 2023-05-26 04:09 | Emergency (ER) | payer MEDICAID ==
[~2023-05-26] VITALS: Ht 182.9 cm; Wt 72.7 kg
[2023-05-26 04:27] VITALS: BP 119/83; PULSE 105; RESP 18; O2SAT 98
[2023-05-26] MEDS ORDERED: CEPH500C PO (07:47)
== END 2023-05-26 06:26 | disposition left against medical advice (07) ==
LOC: ER 04:09
DX: N48.9 Disorder of penis, unspecified (principal); Z53.21 Procedure and treatment not carried out due to patient leaving prior to being seen by health care provider

== ENCOUNTER 2023-05-26 06:46 | Emergency (ER) | payer MEDICAID ==
[~2023-05-26] VITALS: Ht 165.1 cm; Wt 63.0 kg
[2023-05-26] MEDS ORDERED: cefTRIAXone SOD 1,000 MG VL IM ONE (07:45)
[2023-05-26] MEDS ORDERED: CEPH500C PO (07:47)
[2023-05-26 08:01] VITALS: BP 128/84; PULSE 101; RESP 20; TEMP 98.4; O2SAT 99
== END 2023-05-26 08:04 | disposition home or self-care (01) ==
LOC: ER 06:46 → EDBD 06:46 → ER 08:03
DX: R59.0 Localized enlarged lymph nodes (principal); F17.210 Nicotine dependence, cigarettes, uncomplicated; F12.10 Cannabis abuse, uncomplicated; F15.10 Other stimulant abuse, uncomplicated; Z59.00 Homelessness unspecified; Z88.0 Allergy status to penicillin
CPT/HCPCS: 96372; 99283; J0696

== ENCOUNTER 2024-11-06 08:10 | Emergency (ER) | payer SELFPAY ==
[~2024-11-06] VITALS: Ht 177.8 cm; Wt 84.0 kg
[~2024-11-06 08:10] MED LIST changes: +AZIT-185 PO; -AZIT-81 PO; +CLIN1CAP70 PO; -CLIN300C70 PO
[2024-11-06 08:15] VITALS: BP 110/64; PULSE 81; RESP 14; TEMP 98.4; O2SAT 98
[2024-11-06 08:51] LABS: Hematocrit 43.7 % (41.0-53.0); Hemoglobin 14.9 g/dL (13.5-17.5); Mean Corpuscular Hemoglobin 31.0 pg (28.0-32.0); Mean Corpuscular Volume 90.8 fL (80.0-100.0); Nucleated Red Blood Cells % 0.1 %
[2024-11-06 08:53] LABS: Urine Protein, UAD Negative (Negative)
--- NOTE | 2024-11-06 09:01 | ED.PDOC ---
Psychiatric HPI Comments 29 y/o M, VICTOR MANUEL, with PMHx of schizophrenia presents to the ED for CC of suicidal ideation. EMS reports, patient is coming to the ED d/t suicidal ideation onset, last night (11/05/24). Patient denies any current plans or prior suicidal attempts. Patient endorses, using crystal meth x2days prior to commencement of symptoms. Patient denies homicidal ideation, visual hallucinations, or auditory hallucinations. No other associated symptoms, modifiers, recent injuries or sick contacts present at this time. Chief Complaint: Suicidal Time Seen by MD: 08:50 Primary Care Provider: THUAN Reviewed Notes: Nurses Notes, Filemaker Developer Notes, Medications, Allergies Information Source: Patient Mode of Arrival: EMS Severity: Able to Care for Self Severity of Pain: None Severity of Mental Status: Moderate Severity of Symptoms: Moderate Timing: Hours Duration: Since onset Prehospital treatment: None Presents with: Suicidal Ideation Ingestion: Drug(s) Ingested Current substance abuse: Narcotics Stressors: Homeless History of: Schizophrenia Quality: None Location of pain or injury: None Associated signs and symptoms: None Past Medical History PAST MEDICAL HISTORY: Schizophrenia Surgical History: Denies all surgeries Family History Family History: Reviewed,noncontributory to illness Social History Smoker: Cigarettes, Less Than 1 Pack/Day Alcohol: Occasionally Drugs: Marijuana, Methamphetamine Lives In: Homeless Constitutional: denies: chills, diaphoresis, fatigue, fever, malaise, sweats, weakness, others EENTM: denies: blurred vision, double vision, ear bleeding, ear discharge, ear drainage, ear pain, ear ringing, eye pain, eye redness, hearing loss, mouth pain, mouth swelling, nasal discharge, nose bleeding, nose congestion, nose pain, photophobia, tearing, throat pain, throat swelling, voice changes, others Respiratory: denies: cough, hemoptysis, orthopnea, SOB at rest, shortness of breath, SOB with excertion, stridor, wheezing, others Cardiovascular: denies: chest pain, dizzy spells, diaphoresis, Dyspnea on exertion, edema, irregular heart beat, left arm pain, lightheadedness, palpitations, PND, syncope, others Gastrointestinal: denies: abdomen distended, abdominal pain, blood streaked bowels, constipated, diarrhea, dysphagia, difficulty swallowing, hematemesis, melena, nausea, poor appetite, poor fluid intake, rectal bleeding, rectal pain, vomiting, others Genitourinary: denies: burning, dysuria, flank pain, frequency, hematuria, incontinence, penile discharge, penile sore, pain, testicle pain, testicle swelling, urgency, others Neurological: denies: dizziness, fainting, headache, left sided numbness, left sided weakness, numbness, paresthesia, pre-existing deficit, right sided numbness, right sided weakness, seizure, speech problems, tingling, tremors, weakness, others Musculoskeletal: denies: back pain, gout, joint pain, joint swelling, muscle pain, muscle stiffness, neck pain, others Integumetry: denies: bruises, change in color, change in hair/nails, dryness, laceration, lesions, lumps, rash, wounds, others Allergic/Immunocompromised: denies: Difficulty Healing, Frequent Infections, Hives, Itching, others Hematologic/Lymphatic: denies: anemia, blood clots, easy bleeding, easy bruising, swollen glands, others Endocrine: denies: excessive hunger, excessive sweating, excessive thirst, excessive urination, flushing, intolerance to cold, intolerance to heat, unexplained weight gain, unexplained weight loss, others Psychiatric: reports: suicidal; denies: anxiety, bipolar disorder, depression, hopeless, panic disorder, schizophrenia, sleepless, others All Other Systems: Reviewed and Negative Physical Exam General Appearance: No Apparent Distress, Normal HEENT: Normal ENT Inspection, Pharynx Normal Neck: Full Range of Motion, Non-Tender, Normal, Normal Inspection Respiratory: Chest Non-Tender, Lungs Clear, No Accessory Muscle Use, No Respiratory Distress, Normal Breath Sounds Cardiovascular: No Edema, No Murmur, No Gallop, Normal Peripheral Pulses, Regular Rate/Rhythm Breast Exam: Deferred Gastrointestinal: No Organomegaly, Non Tender, No Pulsatile Mass, Normal Bowel Sounds, Soft Genitalia: Deferred Pelvic: Deferred Rectal: Deferred Extremities: No calf tenderness, Normal capillary refill, Normal inspection, Normal range of motion, Non-tender, No pedal edema Musculoskeletal : Apperance: Normal Neurologic: Alert, canning machine operator II-XII nml as Tested, No Motor Deficits, Normal Affect, Normal Mood, No Sensory Deficits Cerebellar Function: Normal Reflexes: Normal Skin: Dry, Normal Color, Warm Lymphatic: No Adenopathy Was a procedure done? Was a procedure done?: No Psych Differential Dx Psych. Differential Dx: Suicidal X-Ray, Labs, Meds, VS Vital Signs Date Time Temp Pulse Resp B/P (MAP) Pulse Ox O2 Delivery O2 Flow Rate FiO2 11/06/24 08:15 98.4 81 14 110/64 (79) 98 98.4 Lab Test 11/06/24 08:31 11/06/24 08:23 Range/Units White Blood Count 7.6 4.4-10.8 10^3/uL Red Blood Count 4.81 4.5-5.90 10^6/uL Hemoglobin 14.9 13.5-17.5 g/dL Hematocrit 43.7 41.0-53.0 % Mean Corpuscular Volume 90.8 80.0-100.0 fL Mean Corpuscular Hemoglobin 31.0 28.0-32.0 pg Mean Corpuscular Hemoglobin Concent 34.1 32.0-36.0 g/dL Red Cell Distribution Width 12.7 11.8-14.3 % Platelet Count 251 140-450 10^3/uL Mean Platelet Volume 8.2 6.9-10.8 fL Neutrophils (%) (Auto) 53.3 37.0-80.0 % Lymphocytes (%) (Auto) 38.0 10.0-50.0 % Monocytes (%) (Auto) 6.9 0.0-12.0 % Eosinophils (%) (Auto) 1.4 0.0-7.0 % Basophils (%) (Auto) 0.4 0.0-2.0 % Neutrophils # (Auto) 4.0 1.6-8.6 10 ^3/uL Lymphocytes # (Auto) 2.9 0.4-5.4 10 ^3/uL Monocytes # (Auto) 0.5 0-1.3 10 ^3/uL Eosinophils # (Auto) 0.1 0-0.8 10 ^3/uL Basophils # (Auto) 0 0-0.2 10 ^3/uL Nucleated Red Blood Cells 0.1 % Sodium Level 139 136-145 mmol/L Potassium Level 3.6 3.5-5.1 mmol/L Chloride Level 103 98-107 mmol/L Carbon Dioxide Level 28 20-31 mmol/L Anion Gap 8 5-15 Blood Urea Nitrogen 12 9-23 mg/dL Creatinine 1.13 0.700-1.30 mg/dL Glomerular Filtration Rate Calc 91 >90 mL/min BUN/Creatinine Ratio 10.6 10.0-20.0 Serum Glucose 133 H 74-106 mg/dL Calcium Level 9.7 8.7-10.4 mg/dL Salicylates Level < 3.0 -30 mg/dL Acetaminophen Level < 2.0 L 10.0-20.0 UG/ML Plasma/Serum Blood Alcohol < 3.0 <10 mg/dL Urine Color Light-yellow Yellow Urine Clarity Clear Clear Urine pH 5.5 5.0-9.0 Urine Specific [place] 1.008 1.001-1.035 Urine Protein Negative Negative Urine Ketones Negative Negative Urine Blood Negative Negative /uL Urine Nitrite Negative Negative Urine Bilirubin Negative Negative Urine Urobilinogen Normal Negative mg/dL Urine Leukocyte Esterase Negative Negative /uL Urine RBC <1 0 - 3 /hpf Urine Microscopic WBC 1 0-3 /HPF Urine Squamous Epithelial Cells None seen <5 /hpf Urine Bacteria None seen None Seen /hpf Urine Glucose Normal Normal mg/dL Urine Opiates Screen Neg NEGATIVE Urine Fentanyl Screen Neg NEGATIVE Urine Barbiturates Screen Neg NEGATIVE Urine Phencyclidine Screen Neg NEGATIVE Urine Amphetamines Screen Pos NEGATIVE Urine Benzodiazepines Screen Neg NEGATIVE Urine Cocaine Screen Neg NEGATIVE Urine Cannabinoids Screen Neg NEGATIVE Time of 1ST Reevaluation: 09:20 Reevaluation 1ST: Unchanged Patient Education/Counseling: Diagnosis, Treatment Family Education/Counseling: No Family Present Departure 1 Departure Time of Disposition: 10:42 (Patient is medically cleared.Patient was evaluated by psychiatry and cleared for discharge. We will discharge patient home.) Impression: Primary Impression: Suicide ideation Disposition: 01 HOME / SELF CARE / HOMELESS Condition: Stable Additional Instructions: It is important to continue to take your regular medications and follow up with the regular doctors. Discharged With: Self Critical Care Note Critical Care Time?: No Stability Stability form required: No Heart Score Heart Score: Heart Score Response (Comments) Value History N/A 0 EKG N/A 0 Age N/A 0 Risk Factors N/A 0 Troponin N/A 0 Total 0 I personally scribed for MARIJA MORALES MD ([email or web address]) on 11/06/24 at 09:01. Electronically submitted by Jessica Deal ([email or web address]). MARIJA MORALES MD Nov 06, 2024 09:01
[2024-11-06 09:05] LABS: Chloride 103 mmol/L (98-107); Potassium 3.6 mmol/L (3.5-5.1); Sodium 139 mmol/L (136-145)
[2024-11-06 09:06] LABS: Anion Gap 8 (5-15); Calcium 9.7 mg/dL (8.7-10.4); Carbon Dioxide 28 mmol/L (20-31)
[2024-11-06 09:10] LABS: Cannabinoid Screen, Urine Neg (NEGATIVE)
[2024-11-06 09:11] LABS: BUN/Creatinine Ratio 10.6 (10.0-20.0); Blood Urea Nitrogen 12 mg/dL (9-23)
[2024-11-06 09:18] LABS: Glucose 133 mg/dL (74-106)
[2024-11-06 09:18] LABS: Amphetamine Screen, Urine Pos (NEGATIVE); Barbiturate Scree,Urine Neg (NEGATIVE); Benzodiazephine Screen, Urine Neg (NEGATIVE); Cocaine Screen, Urine Neg (NEGATIVE); Opiate Scree,Urine Neg (NEGATIVE); Phencyclidine Screen, Urine Neg (NEGATIVE)
[2024-11-06 09:20] LABS: Acetaminophen < 2.0 UG/ML (10.0-20.0); Salicylate < 3.0 mg/dL (-30)
--- NOTE | 2024-11-06 13:36 | DVHINCON2 ---
Date of Service if different f: Nov 06, 2024 Consultation ([facility]) Labs Laboratory Tests Test 11/06/24 08:23 11/06/24 08:31 Urine Color Light-yellow (Yellow) Urine Clarity Clear (Clear) Urine pH 5.5 (5.0-9.0) Urine Specific [place] 1.008 (1.001-1.035) Urine Protein Negative (Negative) Urine Ketones Negative (Negative) Urine Blood Negative /uL (Negative) Urine Nitrite Negative (Negative) Urine Bilirubin Negative (Negative) Urine Urobilinogen Normal mg/dL (Negative) Urine Leukocyte Esterase Negative /uL (Negative) Urine RBC <1 /hpf (0 - 3) Urine Microscopic WBC 1 /HPF (0-3) Urine Squamous Epithelial Cells None seen /hpf (<5) Urine Bacteria None seen /hpf (None Seen) Urine Glucose Normal mg/dL (Normal) Urine Opiates Screen Neg (NEGATIVE) Urine Fentanyl Screen Neg (NEGATIVE) Urine Barbiturates Screen Neg (NEGATIVE) Urine Phencyclidine Screen Neg (NEGATIVE) Urine Amphetamines Screen Pos (NEGATIVE) Urine Benzodiazepines Screen Neg (NEGATIVE) Urine Cocaine Screen Neg (NEGATIVE) Urine Cannabinoids Screen Neg (NEGATIVE) White Blood Count 7.6 10^3/uL (4.4-10.8) Red Blood Count 4.81 10^6/uL (4.5-5.90) Hemoglobin 14.9 g/dL (13.5-17.5) Hematocrit 43.7 % (41.0-53.0) Mean Corpuscular Volume 90.8 fL (80.0-100.0) Mean Corpuscular Hemoglobin 31.0 pg (28.0-32.0) Mean Corpuscular Hemoglobin Concent 34.1 g/dL (32.0-36.0) Red Cell Distribution Width 12.7 % (11.8-14.3) Platelet Count 251 10^3/uL (140-450) Mean Platelet Volume 8.2 fL (6.9-10.8) Neutrophils (%) (Auto) 53.3 % (37.0-80.0) Lymphocytes (%) (Auto) 38.0 % (10.0-50.0) Monocytes (%) (Auto) 6.9 % (0.0-12.0) Eosinophils (%) (Auto) 1.4 % (0.0-7.0) Basophils (%) (Auto) 0.4 % (0.0-2.0) Neutrophils # (Auto) 4.0 10 ^3/uL (1.6-8.6) Lymphocytes # (Auto) 2.9 10 ^3/uL (0.4-5.4) Monocytes # (Auto) 0.5 10 ^3/uL (0-1.3) Eosinophils # (Auto) 0.1 10 ^3/uL (0-0.8) Basophils # (Auto) 0 10 ^3/uL (0-0.2) Nucleated Red Blood Cells 0.1 % Sodium Level 139 mmol/L (136-145) Potassium Level 3.6 mmol/L (3.5-5.1) Chloride Level 103 mmol/L (98-107) Carbon Dioxide Level 28 mmol/L (20-31) Anion Gap 8 (5-15) Blood Urea Nitrogen 12 mg/dL (9-23) Creatinine 1.13 mg/dL (0.700-1.30) Glomerular Filtration Rate Calc 91 mL/min (>90) BUN/Creatinine Ratio 10.6 (10.0-20.0) Serum Glucose 133 mg/dL (74-106) Calcium Level 9.7 mg/dL (8.7-10.4) Salicylates Level < 3.0 mg/dL (-30) Acetaminophen Level < 2.0 UG/ML (10.0-20.0) Plasma/Serum Blood Alcohol < 3.0 mg/dL (<10) Appetite: Fair Appearance: Stated age, Disheveled Psychomotor activity: WNL, Agitated Behavioral: Cooperative Eye contact: Appropriate Speech: WNL Affect: Mood Congruent Mood: Neutral Suicidal ideations: Absent Homicidal ideations: Absent Orientation: Person, Place, Time, Situation Memory intact: Recent Intellect: Average Abstractability: WNL Concentration: Limited Attention: Limited Judgement: WNL Insight: Fair Vitals Vital Signs Date Time Temp Pulse Resp B/P (MAP) Pulse Ox O2 Delivery O2 Flow Rate FiO2 11/06/24 08:15 98.4 81 14 110/64 (79) 98 98.4 Medication adjusted: No Diagnosis: unspecified psychosis, amphetamine use disorder Plan : Patient presently denies suicidal/homicidal ideation and pending social science professor for housing Patient may discharge after medical clearance May continue olanzapine as prescribed Recommend referrals for outpatient mental health services History of Present Illness Reason for Consult : patient reporting suicidal ideation HPI : This is a 29-year-old male with prior hx of psychosis and methamphetamine abuse present here reporting suicidal ideation. patient is evaluated via telepsychiatry. He presently denies suicidal/homicidal ideation. He has minimal answers on interview, mostly yes or no. He reports being homeless for 2 years and agrees to have social insurance specialist help with housing. He denies auditory/visual hallucinations or paranoia. He does appear preoccupied, likely related to long hx of substance use. Past Psychiatric History : He reports prior psych admissions or holds. He denies prior suicide attempts. He denies outpatient mental health follow up. He has hx of olanzapine use per chart review. He is currently not compliant. Past Medical History : He denies Social History : He is homeless for the past 2 years, unemployed. He reports use of methamphetamine for some years. He denies other drugs and alcohol, or IVD. Toxicology is also only positive for Amphetamines. He denies any known family history GLADYS PON[facility] Nov 06, 2024 13:36
== END 2024-11-06 18:15 | disposition home or self-care (01) ==
LOC: EDBD 08:10 → ER 08:10
DX: R45.851 Suicidal ideations (principal); F20.9 Schizophrenia, unspecified; F17.210 Nicotine dependence, cigarettes, uncomplicated; F15.10 Other stimulant abuse, uncomplicated; Z79.899 Other long term (current) drug therapy; Z59.00 Homelessness unspecified
CPT/HCPCS: 36415; 80048; 80307; 80320; 80329; 81001; 85025

== ENCOUNTER 2024-11-09 03:13 | Emergency (ER) | payer SELFPAY ==
[~2024-11-09] VITALS: Ht 182.9 cm; Wt 89.3 kg
--- NOTE | 2024-11-09 03:59 | ED.PDOC ---
Psychiatric HPI Comments 29-year-old male who came to ER via EMS for suicide ideations. Patient is homeless, has history of methamphetamine abuse and suicide ideations. Seen here multiple times for the same reasons. Patient appears very anxious, claims people are out there to harm him. Admits to auditory and visual hallucinations, states he is feeling suicidal, and homicidal as well. Patient reports he feels he is having a reaction to fentanyl. Patient was recently discharged for suicidal ideation, he reports he has started taking psychiatric medications as prescribed. Chief Complaint: Suicidal Time Seen by MD: 03:57 Primary Care Provider: THUAN Reviewed Notes: Nurses Notes Information Source: Patient Mode of Arrival: Ambulatory Severity: Unable to Care for Self, Unable to Control Self Severity of Pain: Moderate Severity of Mental Status: Moderate Severity of Symptoms: Moderate Timing: Hours Duration: Since onset Presents with: Depression, Anxiety, Unclear Thinking, Suicidal Ideation Circumstance: Medical Clearance, Causing a Disturbance Current substance abuse: Amphetamines Stressors: Homeless History of: Depression, Schizophrenia Quality: Hallucinations Associated signs and symptoms: Depression, Hopeless, Anxiety, Hallucinations Review of Systems REVIEW OF SYSTEMS: No fever, no chills, or fatigue HEENT: No sore throat, no earache, no congestion, no neck pain. Cardiac: No chest pain. No palpitations. Lungs: No shortness of breath, no cough. GI: No nausea, no vomiting, no diarrhea, no constipation, no abdominal pain : No dysuria, frequency, or urgency. No hematuria. Musculoskeletal: No joint pain , no joint swelling, no extremity edema. Skin: No rash, no itching. Neuro: No headache, no dizziness, no weakness (+) suicidal, Vital Signs Vital Signs Date Time Temp Pulse Resp B/P (MAP) Pulse Ox O2 Delivery O2 Flow Rate FiO2 11/09/24 07:20 81 16 97 Room Air* 0 21 11/09/24 07:20 98.1 128/105 (113) 98.1 Physical Exam PHYSICAL EXAM: General: Awake, alert and oriented. Patient is disheveled Skin: Skin in warm, dry and intact without rashes or lesions. HEENT: The head is normocephalic and atraumatic. Conjunctivae are clear without exudates or hemorrhage. Sclera is non-icteric. Neck: Normal range of motion. No JVD. Cardiac: Regular rate Respiratory: No signs of respiratory distress. No Stridor. Neurological: The patient is awake, alert and oriented to person, place, and time with normal speech. Speech is clear. There is no facial asymmetry. Normal gait Psychiatric: Patient appears distracted, anxious and slow to respond Past Medical History PAST MEDICAL HISTORY: Schizophrenia Surgical History: Denies all surgeries Family History Family History: Reviewed,noncontributory to illness Social History Smoker: Cigarettes, Less Than 1 Pack/Day Alcohol: Occasionally Drugs: Marijuana, Methamphetamine Lives In: Homeless Was a procedure done? Was a procedure done?: No Psych Differential Dx Suicidal Differential Dx: Anxiety, Depression, Homicidal, Schizoprenia, Substance Abuse X-Ray, Labs, Meds, VS Vital Signs Date Time Temp Pulse Resp B/P (MAP) Pulse Ox O2 Delivery O2 Flow Rate FiO2 11/09/24 07:20 81 16 97 Room Air* 0 21 11/09/24 07:20 98.1 81 16 128/105 (113) 97 98.1 11/09/24 03:38 98.3 125 20 159/71 (100) 96 98.3 Lab Test 11/09/24 04:05 Range/Units White Blood Count 8.4 4.4-10.8 10^3/uL Red Blood Count 4.57 4.5-5.90 10^6/uL Hemoglobin 14.3 13.5-17.5 g/dL Hematocrit 41.4 41.0-53.0 % Mean Corpuscular Volume 90.8 80.0-100.0 fL Mean Corpuscular Hemoglobin 31.3 28.0-32.0 pg Mean Corpuscular Hemoglobin Concent 34.4 32.0-36.0 g/dL Red Cell Distribution Width 13.0 11.8-14.3 % Platelet Count 279 140-450 10^3/uL Mean Platelet Volume 8.1 6.9-10.8 fL Neutrophils (%) (Auto) 62.2 37.0-80.0 % Lymphocytes (%) (Auto) 29.8 10.0-50.0 % Monocytes (%) (Auto) 6.8 0.0-12.0 % Eosinophils (%) (Auto) 0.7 0.0-7.0 % Basophils (%) (Auto) 0.5 0.0-2.0 % Neutrophils # (Auto) 5.2 1.6-8.6 10 ^3/uL Lymphocytes # (Auto) 2.5 0.4-5.4 10 ^3/uL Monocytes # (Auto) 0.6 0-1.3 10 ^3/uL Eosinophils # (Auto) 0.1 0-0.8 10 ^3/uL Basophils # (Auto) 0 0-0.2 10 ^3/uL Nucleated Red Blood Cells 0.0 % Sodium Level 144 # 136-145 mmol/L Potassium Level 3.4 L 3.5-5.1 mmol/L Chloride Level 107 98-107 mmol/L Carbon Dioxide Level 27 20-31 mmol/L Anion Gap 10 5-15 Blood Urea Nitrogen 16 9-23 mg/dL Creatinine 1.34 H 0.700-1.30 mg/dL Glomerular Filtration Rate Calc 74 >90 mL/min BUN/Creatinine Ratio 11.9 10.0-20.0 Serum Glucose 154 H 74-106 mg/dL Calcium Level 9.9 8.7-10.4 mg/dL Plasma/Serum Blood Alcohol < 3.0 <10 mg/dL : I took over patient's care from Dr. Bhatti at 6:00 a.m.. At this time patient was waiting for medical clearance. CBC, CMP have returned which are largely within normal limits except for mild acute kidney injury of 1.34 wh ich is likely normal for him. Patient was here for suicidal ideation and homicidal ideation. He was previously having some auditory hallucinations. At 9:15 a.m. nursing staff approached me that patient wanted to leave. He no longer wants to wait for Psychiatry evaluation. I spoke with the patient myself. Patient is awake alert able to answer all my questions. He states he is no longer suicidal or homicidal. He states he was feeling that way yesterday but no longer does. He is no longer hearing thoughts are seeing anything. Patient is homeless and wants to leave. He states it is taking too long. The patient was able to eat and clean himself and walk to the bathroom while in the ER. Patient knows that we are in the hospital , the season a summer, present is Socrates Dsouza. Advised patient that the risk of leaving including permanent disability and . He seems to understand this. At this time advised him to return if he changes his mind. Time of 1ST Reevaluation: 03:54 Reevaluation 1ST: Unchanged Time of 2ND Reevaluation: 09:33 Reevaluation 2ND: Improved Patient Education/Counseling: Need For Follow Up Family Education/Counseling: No Family Present Change of Shift?: Yes (Signed out to Dr. Clayton at 0600) Departure 1 Departure Time of Disposition: 09:29 Impression: Primary Impression: Suicidal ideation Additional Impression: Auditory hallucination Disposition: 07 LEFT AWOL/ELOPED Condition: Stable Additional Instructions: Follow up with the primary care physician in 2-3 days. Return to the ER if symptoms worsen or persist. Please return back if you have any further suicidal thoughts. Critical Care Note Critical Care Time?: No Stability Stability form required: No Heart Score Heart Score: Heart Score Response (Comments) Value History N/A 0 EKG N/A 0 Age N/A 0 Risk Factors N/A 0 Troponin N/A 0 Total 0 I personally scribed for LUDMILA MCGUIRE MD ([email or web address]) on 11/09/24 at 03:59. Electronically submitted by Nakul Patel ([facility]). LUDMILA MCGUIRE MD Nov 09, 2024 03:59 KATHARINE CLAYTON MD Nov 09, 2024 09:33
[2024-11-09 04:18] LABS: Hematocrit 41.4 % (41.0-53.0); Hemoglobin 14.3 g/dL (13.5-17.5); Mean Corpuscular Hemoglobin 31.3 pg (28.0-32.0); Mean Corpuscular Volume 90.8 fL (80.0-100.0); Nucleated Red Blood Cells % 0.0 %
[2024-11-09 04:39] LABS: Sodium 144 mmol/L (136-145)
[2024-11-09 04:40] LABS: Anion Gap 10 (5-15); Calcium 9.9 mg/dL (8.7-10.4); Carbon Dioxide 27 mmol/L (20-31)
[2024-11-09 04:42] LABS: Chloride 107 mmol/L (98-107); Potassium 3.4 mmol/L (3.5-5.1)
[2024-11-09 04:45] LABS: Glucose 154 mg/dL (74-106)
[2024-11-09 04:55] LABS: BUN/Creatinine Ratio 11.9 (10.0-20.0); Blood Urea Nitrogen 16 mg/dL (9-23)
[2024-11-09 07:20] VITALS: PULSE 81; RESP 16; O2SAT 97
[2024-11-09 09:25] VITALS: BP 125/100; PULSE 80; RESP 16; TEMP 98.1; O2SAT 97
== END 2024-11-09 09:30 | disposition left against medical advice (07) ==
LOC: ER 03:13
DX: R45.851 Suicidal ideations (principal); R44.0 Auditory hallucinations; R44.1 Visual hallucinations; F17.210 Nicotine dependence, cigarettes, uncomplicated; F15.10 Other stimulant abuse, uncomplicated; F12.90 Cannabis use, unspecified, uncomplicated; Z59.00 Homelessness unspecified
CPT/HCPCS: 36415; 80048; 80320; 85025

== ENCOUNTER 2024-11-13 02:41 | Inpatient (IN) | payer MEDICAID ==
[~2024-11-13] VITALS: Ht 182.9 cm; Wt 89.5 kg
--- NOTE | 2024-11-13 04:19 | ED.PDOC ---
HPI Comments 29 year old male presents to the ED with a chief complaint of chest pain onset 2 days. Patient states he has been experiencing chest pain as well as shortness of breath and cough. Patient is a poor historian, reluctant to answer questions. Denies PMHx as well as fever, chills, headache, abdominal pain, nausea, vomiting, diarrhea, urinary symptoms, blurry vision. No other symptoms or modifying factors present at this time. Chief Complaint: Chest Pain Time Seen by MD: 03:35 Primary Care Provider: DENIES Reviewed Notes: Medications, Allergies Allergies: Coded Allergies: Penicillins (Verified Allergy, Unknown, 02/03/17) Home Meds Active Scripts Cephalexin Monohydrate (Cephalexin) 500 Mg Cap, 1 CAP PO TID, #30 CAP Prov:JARROD LEDESMA 05/26/23 Clindamycin Hcl (Clindamycin Hcl) 300 Mg Cap, 1 CAP PO TID for 7 Days, #21 CAP 0 Refills Prov:CHARITY MORIN 05/22/23 Clindamycin Hcl (Clindamycin Hcl) 300 Mg Cap, 1 CAP PO TID, #30 CAP Prov:JARROD LEDESMA 05/10/23 Clindamycin Hcl (CLEOCIN) 150 Mg Cap, 1 CAP PO TID, #30 CAP Prov:GELY HARRISON MD 05/02/23 Mupirocin Calcium (Topical) (MUPIROCIN) 2 % Cre, 2 % EX BID for 5 Days, #15 CRE Prov:ENRIQUE LINDER MD 04/24/23 Hydrocodone-Acetaminophen (Hydrocodone Bitartrate/AC 5-325 mg) 1 Tab Tab, 1 TAB PO QID PRN, #20 TAB Prov:ENRIQUE LINDER MD 04/24/23 Linezolid (Zyvox) 600 Mg Tab, 600 MG PO BID, #30 TAB Prov:ENRIQUE LINDER MD 04/24/23 Acetaminophen (Acetaminophen) 500 Mg Tab, 500 MG PO Q6HPRN, #30 TAB 0 Refills Prov:CHARITY MORIN 04/18/23 Clindamycin Hcl (Clindamycin Hcl) 300 Mg Cap, 1 CAP PO TID for 7 Days, #21 CAP 0 Refills Prov:CHARITY MORIN 04/18/23 Cephalexin Monohydrate (Cephalexin) 500 Mg Cap, 1 CAP PO BID for 7 Days, #14 CAP 0 Refills Prov:CHARITY MORIN 04/18/23 Albuterol Sulfate (VENTOLIN MDI) 90 Mcg Ih, 1 INH IN Q4HR, #1 INH As needed for shortness of breath or wheeze Prov:ALBINOAUSTIN Q PERMASTONE INSTALLER 12/30/22 Prednisone (Prednisone) 20 Mg Tab, 1 TAB PO DAILY for 5 Days, #5 TAB with food Prov:ALBINOAUSTIN Q PERMASTONE INSTALLER 12/30/22 Azithromycin (Zithromax Z-Sherwin) 250 Mg Tab, 1 TAB PO DAILY for 5 Days, #6 TAB 2 tabs daily then 1 tab start tomorrow for 4 days Prov:ALBINOROSAKRYSTEN Q PERMASTONE INSTALLER 12/30/22 Promethazine-Dm (Promethazine Dm 6.25-15 mg/5Ml) 1 Shaye Shaye, 5 ML PO TID, #150 ML Prov:JARROD LEDESMA 12/30/22 Albuterol Sulfate (Albuterol Sulfate Hfa) 108 Mcg/Act Aer, 108 MCG IN TID, #90 AER Prov:JARROD LEDESMA 12/30/22 Azithromycin (ZITHROMAX TABLET) 250 Mg Tb, 250 MG PO DAILY, #6 TAB Prov:JARROD LEDESMA 12/30/22 Risperidone (RisperDAL TABLET) 1 Mg Tb, 2 TAB PO QPM, #60 TAB 1 Refill Prov:KATE GUARDADO DO 12/26/22 Olanzapine (Zyprexa) 20 Mg Tab, 1 TAB PO QPM, #30 TAB Prov:KATE GUARDADO DO 12/26/22 Information Source: Patient Mode of Arrival: Ambulatory Severity: Moderate Timing: Days Duration: Since onset Prehospital treatment: None Location: Chest (L) Radiation: No Radiation Quality: Sharp Onset: At Rest Cardiac Risk Factors: None PE Risk Factors: None History of: None Associated Signs and Symptoms: SOB Vital Signs Vital Signs Date Time Temp Pulse Resp B/P (MAP) Pulse Ox O2 Delivery O2 Flow Rate FiO2 11/13/24 09:45 98.1 61 18 103/71 (82) 98 98.1 Physical Exam PHYSICAL EXAM: General: Awake, alert and oriented. No acute distress. Skin: Skin in warm, dry and intact without rashes or lesions. HEENT: The head is normocephalic and atraumatic. Conjunctivae are clear without exudates or hemorrhage. Sclera is non-icteric. Neck: Normal range of motion. No JVD. Cardiac: Regular rate Respiratory: No signs of respiratory distress. No Stridor. Extremities: Upper and lower extremities are atraumatic in appearance without deformity. Neurological: The patient is awake, alert and oriented to person, place, and time with normal speech. Speech is clear. There is no facial asymmetry. Psychiatric: Appropriate mood and affect. Good judgement and insight. Review of Systems: REVIEW OF SYSTEMS: General: No fever, no chills, or fatigue HEENT: No sore throat, no earache, no congestion, no neck pain. Cardiac: + chest pain. No palpitations. Lungs: + shortness of breath, + cough. GI: No nausea, no vomiting, no diarrhea, no constipation, no abdominal pain : No dysuria, frequency, or urgency. No hematuria. Musculoskeletal: No joint pain , no joint swelling, no extremity edema. Skin: No rash, no itching. Neuro: No headache, no dizziness, no weakness Past Medical History PAST MEDICAL HISTORY: Schizophrenia Surgical History: Denies all surgeries Family History Family History: Reviewed,noncontributory to illness Social History Smoker: Cigarettes, Less Than 1 Pack/Day Alcohol: Occasionally Drugs: Marijuana, Methamphetamine Lives In: Homeless Was a procedure done? Was a procedure done?: No CP Differential Dx Differential Diagnosis: Other (Differential diagnoses considered includebut arenot limited to acute Bronchitis, Asthma, COPD, Pneumothorax, PE, CHF, Pulmonary HTN, Anemia, CO Poisoning, Methemoglobinemia, Hyperventilation, Metabolic Acidosis, Pulmonary Edema, Pneumonia, ACS, Pericardial Tamponade, Anxiety, other) X-Ray, Labs, Meds, VS Vital Signs Date Time Temp Pulse Resp B/P (MAP) Pulse Ox O2 Delivery O2 Flow Rate FiO2 11/13/24 09:45 98.1 61 18 103/71 (82) 98 98.1 11/13/24 05:59 98.0 93 16 121/69 (86) 96 98.0 11/13/24 02:54 91 11/13/24 02:51 98.1 105 18 126/74 (91) 96 98.1 Lab Test 11/13/24 08:11 11/13/24 06:00 11/13/24 04:58 Range/Units Troponin I High Sensitivity 8 9 9 </=54 ng/L White Blood Count 7.2 4.4-10.8 10^3/uL Red Blood Count 4.77 4.5-5.90 10^6/uL Hemoglobin 14.8 13.5-17.5 g/dL Hematocrit 43.5 41.0-53.0 % Mean Corpuscular Volume 91.1 80.0-100.0 fL Mean Corpuscular Hemoglobin 31.0 28.0-32.0 pg Mean Corpuscular Hemoglobin Concent 34.1 32.0-36.0 g/dL Red Cell Distribution Width 13.2 11.8-14.3 % Platelet Count 356 140-450 10^3/uL Mean Platelet Volume 8.3 6.9-10.8 fL Neutrophils (%) (Auto) 54.9 37.0-80.0 % Lymphocytes (%) (Auto) 34.8 10.0-50.0 % Monocytes (%) (Auto) 7.0 0.0-12.0 % Eosinophils (%) (Auto) 3.0 0.0-7.0 % Basophils (%) (Auto) 0.3 0.0-2.0 % Neutrophils # (Auto) 3.9 1.6-8.6 10 ^3/uL Lymphocytes # (Auto) 2.5 0.4-5.4 10 ^3/uL Monocytes # (Auto) 0.5 0-1.3 10 ^3/uL Eosinophils # (Auto) 0.2 0-0.8 10 ^3/uL Basophils # (Auto) 0 0-0.2 10 ^3/uL Nucleated Red Blood Cells 0.0 % Sodium Level 141 136-145 mmol/L Potassium Level 3.3 L 3.5-5.1 mmol/L Chloride Level 106 98-107 mmol/L Carbon Dioxide Level 26 20-31 mmol/L Anion Gap 9 5-15 Blood Urea Nitrogen 16 9-23 mg/dL Creatinine 1.20 0.700-1.30 mg/dL Glomerular Filtration Rate Calc 85 >90 mL/min BUN/Creatinine Ratio 13.3 10.0-20.0 Serum Glucose 106 74-106 mg/dL Calcium Level 9.9 8.7-10.4 mg/dL B-Type Natriuretic Peptide 11.96 0-100 pg/mL Current Medications Medications (Trade) Dose Ordered Sig/Ayden Route Start Time Stop Time Status Last Admin Aspirin 324 mg ONCE ONCE PO 11/13/24 04:30 11/13/24 04:31 DC 11/13/24 05:59 Time of 1ST Reevaluation: 04:05 Reevaluation 1ST: Unchanged Patient Education/Counseling: Diagnosis, Treatment Family Education/Counseling: No Family Present Change of Shift?: Yes (Signed out to Dr. Schuster at 0600) SEPSIS Sepsis Screen Date sepsis recognized/suspect: Nov 13, 2024 Time Sepsis recognized/suspect: 250 Recent Procedure: No On Antibiotic Therapy: No Respiratory Rate >20: No Heart Rate >90: No Temp<36 C (96.8 F) or >38.3 C: No SBP <90 or MAP <65 mmHG: No New Acute Mental Status Change: No Is the patient on CPAP, BIPAP,: No Physician Orders Chest Xray 1 View (11/13/24 04:24) Vital Signs Q1HR (11/13/24 04:24) Electrocardigram (11/13/24 05:24) Electrocardigram (11/13/24 07:24) Vital Signs Date Time Temp Pulse Resp B/P (MAP) Pulse Ox O2 Delivery O2 Flow Rate FiO2 11/13/24 09:45 98.1 61 18 103/71 (82) 98 98.1 11/13/24 05:59 98.0 93 16 121/69 (86) 96 98.0 11/13/24 02:54 91 11/13/24 02:51 98.1 105 18 126/74 (91) 96 98.1 Laboratory Tests Test 11/13/24 04:58 White Blood Count 7.2 10^3/uL (4.4-10.8) Medications Medications Dose Ordered Sig/Ayden Route Start Time Stop Time Status Last Admin Dose Admin Aspirin 324 mg ONCE ONCE PO 11/13/24 04:30 11/13/24 04:31 DC 11/13/24 05:59 Departure 1 Departure Time of Disposition: 10:54 (Patient has been initially presented to the emergency room with chest pain. We will admit patient for further workup and expert consultationPatient presented with chest pain that was concerning for possible STEMI, ACS, PE, Pneumonia, Muscle Strain, COPD, Dissection. Data: 1. I ordered and reviewed the result of at least 3 labs including a CBC, BMP, and Troponin. 2. I independently interpreted the following tests: EKG which shows sinus arrhythmia and Chest X-ray which shows benign chest.Risk:This patient has a high risk of morbidity due to further diagnostic testing or treatment and may suffer from an acute cardiac or respiratory disorder. Workup reveals concern for ACS and patient should be admitted for further workup and possible expert consultation. ) Impression: Primary Impression: Acute chest pain Disposition: ADMITTED INPATIENT Admit to: Med Surg Condition: Serious Critical Care Note Critical Care Time?: Yes Critical care comment: Acute chest pain Authorized and Performed by: Marija Schuster MD Total critical care time: Approximately 42 minutes Due to a high probability of clinically significant, life threatening deterioration, the patient required my highest level of preparedness to intervene emergently and I personally spent this critical care time directly and personally managing the patient. This critical care time included obtaining a history; examining the patient; pulse oximetry; ordering and review of studies; arranging urgent treatment with development of a management plan; evaluation of patient's response to treatment; frequent reassessment; and, discussions with other providers. This critical care time was performed to assess and manage the high probability of imminent, life-threatening deterioration that could result in multi-organ failure. It was exclusive of separately billable procedures and treating other patients and teaching time. Please see my other sections and the rest of the note for further information on patient assessment and treatment. Stability Stability form required: No Heart Score Heart Score: Heart Score Response (Comments) Value History Moderate Suspicious 1 EKG Repolarization Disturb 1 Age <45 0 Risk Factors No known risk factors 0 Troponin Normal limit 0 Total 2 I personally scribed for LUDMILA MCGUIRE MD ([email or web address]) on 11/13/24 at 04:19. Electronically submitted by Noreen Esposito ([email or web address]). LUDMILA MCGUIRE MD Nov 13, 2024 04:19 MARIJA SCHUSTER MD Nov 13, 2024 10:57
--- NOTE | 2024-11-13 05:20 | DVH ---
CHEST RADIOGRAPH Indication: cp Technique: Single frontal view of the chest was obtained COMPARISON: XY CHEST PORTABLE on DOS: 05/07/23, XY CHEST XRAY 1 VIEW on DOS: 01/15/23, XY CHEST XRAY 1 V IEW on DOS: 12/30/22, XY CHEST XRAY 1 VIEW on DOS: 12/30/22 FINDINGS: Lines and Tubes: None Lungs: Clear Pleura: No effusion. No pneumothorax. Cardiomediastinal contours: Unremarkable Bones: Unremarkable IMPRESSION: 1. No acute disease.
[2024-11-13 06:02] LABS: Hematocrit 43.5 % (41.0-53.0); Hemoglobin 14.8 g/dL (13.5-17.5); Mean Corpuscular Hemoglobin 31.0 pg (28.0-32.0); Mean Corpuscular Volume 91.1 fL (80.0-100.0); Nucleated Red Blood Cells % 0.0 %
[2024-11-13 06:12] LABS: Chloride 106 mmol/L (98-107); Sodium 141 mmol/L (136-145)
[2024-11-13 06:13] LABS: Anion Gap 9 (5-15); Carbon Dioxide 26 mmol/L (20-31)
[2024-11-13 06:14] LABS: Calcium 9.9 mg/dL (8.7-10.4)
[2024-11-13 06:18] LABS: Glucose 106 mg/dL (74-106)
[2024-11-13 06:19] LABS: BUN/Creatinine Ratio 13.3 (10.0-20.0); Blood Urea Nitrogen 16 mg/dL (9-23)
[2024-11-13 06:22] LABS: Potassium 3.3 mmol/L (3.5-5.1)
--- NOTE | 2024-11-13 06:37 | ECG ---
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
[2024-11-13] MEDS ORDERED: MORPHINE SULFATE 4 MG/ML SYR/VIAL IV PRN (12:15)
[2024-11-13] MEDS ORDERED: ACETAMINOPHEN 325 MG TAB PO PRN (12:15)
[2024-11-13] MEDS ORDERED: ONDANSETRON HCL 4 MG/2 ML VIAL IV PRN (12:15)
[2024-11-13] MEDS ORDERED: MORPHINE SULFATE INJ 2 MG/ml SYRG IV PRN (12:15)
[2024-11-13] MEDS ORDERED: NITROGLYCERIN 0.4 MG SL TAB SL PRN ×2 (12:15)
--- NOTE | 2024-11-13 12:16 | DVHHP2 ---
History of Present Illness Reason for Visit: Chest pain History of Present Illness Errol Koch is a 29-year-old male with past medical history of schizophrenia, hypertension, and asthma who presents to the ED with chest pain that started yesterday. Patient reports that his pain is 6/10 states that " it is just there" and intermittent in nature. He states that nothing makes it better or worse. He reports that he is homeless. Patient denies any recent trauma or injury, recent sick contacts, recent travels, recent ingestion of spoiled food, shortness of breath, fever, chills, lightheadedness, weakness, dizziness, abdominal pain, nausea, vomiting, diarrhea, or urinary symptoms. Patient denies use of tobacco, alcohol, and marijuana however prior reports shows that he smokes cigarettes, drinks, and uses marijuana. Cardiovascular: HTN Pulmonary: Asthma Psych: Schizophrenia Past Surgical History: None Family History: None Smoke: No ALCOHOL: none Drugs: None Lives: Homeless Domestic Violence: Neg Review of Systems Cardiovascular: Chest Pain Allergies: Coded Allergies: Penicillins (Verified Allergy, Unknown, 02/03/17) Medications Current Medications Medications Dose Ordered Sig/Ayden Route Start Time Stop Time Status Last Admin Dose Admin Aspirin 81 mg DAILY PO 11/14/24 10:00 UNV Atorvastatin Calcium 40 mg HS PO 11/13/24 22:00 UNV Morphine Sulfate 2 mg Q30MP PRN IV 11/13/24 12:15 UNV Acetaminophen 650 mg Q6HP PRN PO 11/13/24 12:15 UNV Nitroglycerin 0.4 mg Q5MINP PRN SL 11/13/24 12:15 UNV Ondansetron HCl 4 mg Q4HP PRN IV 11/13/24 12:15 UNV Nitroglycerin 0.4 mg Q5MINP PRN SL 11/13/24 12:15 UNV Morphine Sulfate 2 mg Q30M PRN IV 11/13/24 12:15 UNV Exam Vital Signs Vital Signs Date Time Temp Pulse Resp B/P (MAP) Pulse Ox O2 Delivery O2 Flow Rate FiO2 11/13/24 09:45 98.1 61 18 103/71 (82) 98 98.1 General Appearance: Alert, Oriented X3, Cooperative, No acute distress, Other (Disheveled and body odor) HEENT: Atraumatic, PERRLA, EOMI, Mucous membr. moist/pink Respiratory: Clear to auscultation, Normal air movement Cardiovascular: Normal S1, Normal S2 Abdominal: Normal bowel sounds, Soft Extremities: Normal pulses Neuro: Normal gait, Normal speech, Strength at 5/5 X4 ext, Normal tone, Sensation intact Psych/Mental Status: Mental status NL, Mood NL Labs/Xrays Labs Test 11/13/24 08:11 11/13/24 04:58 Range/Units Troponin I High Sensitivity 8 </=54 ng/L White Blood Count 7.2 4.4-10.8 10^3/uL Red Blood Count 4.77 4.5-5.90 10^6/uL Hemoglobin 14.8 13.5-17.5 g/dL Hematocrit 43.5 41.0-53.0 % Mean Corpuscular Volume 91.1 80.0-100.0 fL Mean Corpuscular Hemoglobin 31.0 28.0-32.0 pg Mean Corpuscular Hemoglobin Concent 34.1 32.0-36.0 g/dL Red Cell Distribution Width 13.2 11.8-14.3 % Platelet Count 356 140-450 10^3/uL Mean Platelet Volume 8.3 6.9-10.8 fL Neutrophils (%) (Auto) 54.9 37.0-80.0 % Lymphocytes (%) (Auto) 34.8 10.0-50.0 % Monocytes (%) (Auto) 7.0 0.0-12.0 % Eosinophils (%) (Auto) 3.0 0.0-7.0 % Basophils (%) (Auto) 0.3 0.0-2.0 % Neutrophils # (Auto) 3.9 1.6-8.6 10 ^3/uL Lymphocytes # (Auto) 2.5 0.4-5.4 10 ^3/uL Monocytes # (Auto) 0.5 0-1.3 10 ^3/uL Eosinophils # (Auto) 0.2 0-0.8 10 ^3/uL Basophils # (Auto) 0 0-0.2 10 ^3/uL Nucleated Red Blood Cells 0.0 % Sodium Level 141 136-145 mmol/L Potassium Level 3.3 L 3.5-5.1 mmol/L Chloride Level 106 98-107 mmol/L Carbon Dioxide Level 26 20-31 mmol/L Anion Gap 9 5-15 Blood Urea Nitrogen 16 9-23 mg/dL Creatinine 1.20 0.700-1.30 mg/dL Glomerular Filtration Rate Calc 85 >90 mL/min BUN/Creatinine Ratio 13.3 10.0-20.0 Serum Glucose 106 74-106 mg/dL Calcium Level 9.9 8.7-10.4 mg/dL B-Type Natriuretic Peptide 11.96 0-100 pg/mL CHEST RADIOGRAPH Indication: cp Technique: Single frontal view of the chest was obtained COMPARISON: XY CHEST PORTABLE on DOS: 05/07/23, XY CHEST XRAY 1 VIEW on DOS: 01/15/23, XY CHEST XRAY 1 VIEW on DOS: 12/30/22, XY CHEST XRAY 1 VIEW on DOS: 12/30/22 FINDINGS: Lines and Tubes: None Lungs: Clear Pleura: No effusion. No pneumothorax. Cardiomediastinal contours: Unremarkable Bones: Unremarkable IMPRESSION: 1. No acute disease. SEPSIS Sepsis Screen Date sepsis recognized/suspect: Nov 13, 2024 Time Sepsis recognized/suspect: 250 Recent Procedure: No On Antibiotic Therapy: No Respiratory Rate >20: No Heart Rate >90: No Temp<36 C (96.8 F) or >38.3 C: No SBP <90 or MAP <65 mmHG: No New Acute Mental Status Change: No Is the patient on CPAP, BIPAP,: No Physician Orders Chest Xray 1 View (11/13/24 04:24) Vital Signs Q1HR (11/13/24 04:24) Electrocardigram (11/13/24 05:24) Electrocardigram (11/13/24 07:24) Admit (11/13/24 12:03) Code Status (11/13/24 12:03) Vital Signs .PER UNIT PROTOCOL (11/13/24 12:03) Continuity Clerk (11/13/24 12:03) Cardiac Diet-2gna,Lofat,Lochol (11/13/24 Lunch) Aspirin Tablet (11/14/24 10:00) Atorvastatin (Lipitor) (11/13/24 22:00) Morphine Sulfate Injection (11/13/24 12:15) Acetaminophen Tablet (Tylenol Tablet) (11/13/24 12:15) Complete Blood Count (11/14/24 04:00) Basic Metabolic Panel (11/14/24 04:00) Magnesium (11/14/24 04:00) Lipid Panel (11/14/24 04:00) Echo 2d Mode Cardiac Dop (11/13/24 12:03) Nitroglycerin Sublingual (Ntrostat Subli (11/13/24 12:15) Ondansetron Hcl (Zofran) (11/13/24 12:15) Electrocardigram (11/14/24 04:00) Troponin-I Hs (11/13/24 12:03) Cardiac Rehabilitation - Outpa (11/13/24 ) Nitroglycerin Sublingual (Ntrostat Subli (11/13/24 12:15) Morphine Sulfate Injection (11/13/24 12:15) Stat Ekg For Chest Pain (11/13/24 12:03) Notify Md Of Changes From Base (11/13/24 12:03) Motor Transport Inspector For 24 Hours (11/13/24 12:03) Emergency Dysrhythmia Protocol (11/13/24 12:03) Rhythm Strips Once Every Shift (11/13/24 12:03) Oxygen By Nasal Cannula (11/13/24 12:03) Urinalysis (11/13/24 12:03) Drug Screen (11/13/24 12:03) Thyroid Stimulating Hormone (11/13/24 12:03) Hemoglobin A1c (11/13/24 12:03) Free T4 (Free Thyroxine) (11/13/24 12:03) Potassium Er Tablet (Klor-Con Tablet) (11/13/24 12:15) * International Relations Teacher Consult (11/13/24 ) Risperidone Tablet (Risperdal Tablet) (11/13/24 18:00) (Nf) Olanzapine (Zyprexa) (11/13/24 18:00) Vital Signs Date Time Temp Pulse Resp B/P (MAP) Pulse Ox O2 Delivery O2 Flow Rate FiO2 11/13/24 09:45 98.1 61 18 103/71 (82) 98 98.1 11/13/24 05:59 98.0 93 16 121/69 (86) 96 98.0 Laboratory Tests Test 11/13/24 04:58 White Blood Count 7.2 10^3/uL (4.4-10.8) Medications Medications Dose Ordered Sig/Ayden Route Start Time Stop Time Status Last Admin Dose Admin Aspirin 324 mg ONCE ONCE PO 11/13/24 04:30 7/17/25 04:31 DC 11/13/24 05:59 324 MG Assessment/Plan Assessment/Plan Assessment Chest pain Hypokalemia History of schizophrenia History of hypertension History of asthma Plan Admit to tele Antiemetics Pain management Aspirin + statin Replete lytes Troponin noted negative x3 EKG Chest x-ray noted BNP Duo nebs Echo ordered TSH Lipid panel A1c UA UDS Free T4 Diet Home medications reconciled DVT prophylaxis-not indicated patient ambulating PUD prophylaxis-not indicated no history of GERD or GI bleed Discussed plan of care with patient and nurse Social work-patient homeless [id number] Behavior change smoking greater than 10 minutes about use of other options also gave option of nicotine patch [id number] Preventive counseling healthy eating habits, physical activity, and regular checkups Plan discussed with: Patient My Orders Orders - SABINE PADRON TIN CAN LABORER Procedure Category Date Status Time Admit ADMIT 11/13/24 Transmitted 12:03 Code Status CODE 11/13/24 Transmitted 12:03 Vital Signs RUTH 11/13/24 In Process 12:03 Continuity Clerk RUTH 11/13/24 In Process 12:03 Cardiac DIET 11/13/24 Transmitted Diet-2gna,Lofat,Lochol Lunch Aspirin Tablet PHA 11/14/24 Logged 10:00 Atorvastatin (Lipitor) PHA 11/13/24 Logged 22:00 Morphine Sulfate PHA 11/13/24 Logged Injection 12:15 Acetaminophen Tablet PHA 11/13/24 Logged (Tylenol Tablet) 12:15 Complete Blood Count LAB 11/14/24 Verified 04:00 Basic Metabolic Panel LAB 11/14/24 Verified 04:00 Magnesium LAB 11/14/24 Verified 04:00 Lipid Panel LAB 11/14/24 Verified 04:00 Echo 2d Mode Cardiac US 11/13/24 Logged DOP 12:03 Nitroglycerin PHA 11/13/24 Logged Sublingual (Ntrostat 12:15 Ondansetron Hcl PHA 11/13/24 Logged (Zofran) 12:15 Electrocardigram EKG 11/14/24 Logged 04:00 Troponin-I Hs LAB 11/13/24 Logged 12:03 Cardiac RUTH 11/13/24 In Process Rehabilitation - Outpa Nitroglycerin PHA 11/13/24 Logged Sublingual (Ntrostat 12:15 Morphine Sulfate PHA 11/13/24 Logged Injection 12:15 Stat Ekg For Chest [facility] 11/13/24 In Process Pain 12:03 Notify Of Changes [facility] 11/13/24 In Process From Base 12:03 Motor Transport Inspector For [facility] 11/13/24 In Process 24 Hours 12:03 Emergency Dysrhythmia [facility] 11/13/24 In Process Protocol 12:03 Rhythm Strips Once [facility] 11/13/24 In Process Every Shift 12:03 Oxygen By Nasal RT 11/13/24 Transmitted Cannula 12:03 Urinalysis LAB 11/13/24 Logged 12:03 Drug Screen LAB 11/13/24 Logged 12:03 Thyroid Stimulating LAB 11/13/24 Logged Hormone 12:03 Hemoglobin A1c LAB 11/13/24 Logged 12:03 Free T4 (Free LAB 11/13/24 Logged Thyroxine) 12:03 Potassium Er Tablet PHA 11/13/24 Logged (Klor-Con Tablet) 12:15 * International Relations Teacher CONS 11/13/24 Transmitted Consult Risperidone Tablet PHA 11/13/24 Verified (Risperdal Tablet) 18:00 (Nf) Olanzapine PHA 11/13/24 Verified (Zyprexa) 18:00 Date of Service: Nov 13, 2024 Billing Provider: SABINE PADRON Common Visit Codes: [id number] INP/OBS CARE (HIGH) Secondary Visit Codes: [id number] COUNSELING IND, 95507-[id number] CHNG SMOKING >10MIN SABINE PADRON Nov 13, 2024 12:16
[2024-11-13 13:10] VITALS: PULSE 91; RESP 22; O2SAT 100
[2024-11-13] MEDS: IPRATROPIUM BROM 0.5 MG/2.5ML INH SOL NEB SCH (13:10)
[2024-11-13] MEDS: ALBUTEROL SULF 2.5 MG/0.5ML(0.5%) NEB SOLN NEB SCH (13:10)
[2024-11-13] MEDS: POTASSIUM CHL 20 Meq TABLET PO ONE (13:11)
[2024-11-13 13:16] VITALS: PULSE 87; RESP 20; O2SAT 100
[2024-11-13 13:51] VITALS: BP 113/70; PULSE 91; RESP 20; O2SAT 100
[2024-11-13 16:30] VITALS: BP 136/76; PULSE 96; RESP 16; TEMP 98.7; O2SAT 97
[2024-11-13] MEDS ORDERED: risperiDONE 1 MG TAB PO SCH (18:00)
[2024-11-13] MEDS ORDERED: OLANZAPINE 20 MG PO SCH (18:00)
[2024-11-13] MEDS ORDERED: ATORVASTATIN 20 MG TAB PO SCH (22:00)
== END 2024-11-13 17:49 | disposition left against medical advice (07) | DRG 203 ==
LOC: ER 02:41 → OVERFLOW 12:03
DX: R07.89 Other chest pain (principal); E87.6 Hypokalemia; F17.210 Nicotine dependence, cigarettes, uncomplicated; F20.9 Schizophrenia, unspecified; I10 Essential (primary) hypertension; J45.909 Unspecified asthma, uncomplicated; Z59.00 Homelessness unspecified; Z79.899 Other long term (current) drug therapy; Z88.0 Allergy status to penicillin
CPT/HCPCS: 36415; 71045; 80048; 83036; 83880; 84439; 84443; 84484; 85025; 93005; 94640; 99291; G0378

== ENCOUNTER 2024-11-18 17:50 | Emergency (ER) | payer MEDICAID ==
[~2024-11-18] VITALS: Ht 157.5 cm; Wt 113.6 kg
--- NOTE | 2024-11-18 18:09 | ED.PDOC ---
History of Present Illness HPI Comments 29-year-old male with PMHx Schizophrenia presents with a chief complaint of chest pressure and weakness x onset this morning. Patient was found outside of a smoke shop by EMS and reports that he has been feeling chest pressure in the sternal region, nonradiating, describes as pressure. Patient reports that he is homeless and smokes cigarettes, marijuana and methamphetamine. Patient was hypotensive per EMS with a BP of 145 systolic. Patient blood sugar was 145. Time Seen by MD: 17:51 Primary Care Provider: THUAN Reviewed Notes: Nurses Notes, Medications, Allergies Allergies: Coded Allergies: Penicillins (Verified Allergy, Unknown, 02/03/17) Home Meds Active Scripts Cephalexin Monohydrate (Cephalexin) 500 Mg Cap, 1 CAP PO TID, #30 CAP Prov:JARROD LEDESMA 05/26/23 Clindamycin Hcl (Clindamycin Hcl) 300 Mg Cap, 1 CAP PO TID for 7 Days, #21 CAP 0 Refills Prov:CHARITY MORIN 05/22/23 Clindamycin Hcl (Clindamycin Hcl) 300 Mg Cap, 1 CAP PO TID, #30 CAP Prov:JARROD LEDESMA 05/10/23 Clindamycin Hcl (CLEOCIN) 150 Mg Cap, 1 CAP PO TID, #30 CAP Prov:GELY HARRISON MD 05/02/23 Mupirocin Calcium (Topical) (MUPIROCIN) 2 % Cre, 2 % EX BID for 5 Days, #15 CRE Prov:ENRIQUE LINDER MD 04/24/23 Hydrocodone-Acetaminophen (Hydrocodone Bitartrate/AC 5-325 mg) 1 Tab Tab, 1 TAB PO QID PRN, #20 TAB Prov:ENRIQUE LINDER MD 04/24/23 Linezolid (Zyvox) 600 Mg Tab, 600 MG PO BID, #30 TAB Prov:ENRIQUE LINDER MD 04/24/23 Acetaminophen (Acetaminophen) 500 Mg Tab, 500 MG PO Q6HPRN, #30 TAB 0 Refills Prov:CHARITY MORIN 04/18/23 Clindamycin Hcl (Clindamycin Hcl) 300 Mg Cap, 1 CAP PO TID for 7 Days, #21 CAP 0 Refills Prov:CHARITY MORIN 04/18/23 Cephalexin Monohydrate (Cephalexin) 500 Mg Cap, 1 CAP PO BID for 7 Days, #14 CAP 0 Refills Prov:CHARITY MORIN 04/18/23 Albuterol Sulfate (VENTOLIN MDI) 90 Mcg Ih, 1 INH IN Q4HR, #1 INH As needed for shortness of breath or wheeze Prov:AUSTIN POSADA Q PLATEN PRESS OPERATOR APPRENTICE 12/30/22 Prednisone (Prednisone) 20 Mg Tab, 1 TAB PO DAILY for 5 Days, #5 TAB with food Prov:AUSTIN POSADA Q PLATEN PRESS OPERATOR APPRENTICE 12/30/22 Azithromycin (Zithromax Z-Sherwin) 250 Mg Tab, 1 TAB PO DAILY for 5 Days, #6 TAB 2 tabs daily then 1 tab start tomorrow for 4 days Prov:AUSTIN POSADA PLATEN PRESS OPERATOR APPRENTICE 12/30/22 Promethazine-Dm (Promethazine Dm 6.25-15 mg/5Ml) 1 Shaye Shaye, 5 ML PO TID, #150 ML Prov:JARROD LEDESMA 12/30/22 Albuterol Sulfate (Albuterol Sulfate Hfa) 108 Mcg/Act Aer, 108 MCG IN TID, #90 AER Prov:JARROD LEDESMA 12/30/22 Azithromycin (ZITHROMAX TABLET) 250 Mg Tb, 250 MG PO DAILY, #6 TAB Prov:JARROD LEDESMA 12/30/22 Risperidone (RisperDAL TABLET) 1 Mg Tb, 2 TAB PO QPM, #60 TAB 1 Refill Prov:KATE GUARDADO DO 12/26/22 Olanzapine (Zyprexa) 20 Mg Tab, 1 TAB PO QPM, #30 TAB Prov:KATE GUARDADO DO 12/26/22 Information Source: Patient, Emergency Med Personnel Mode of Arrival: EMS Severity: Moderate Timing: Hours Duration: Since onset Prehospital treatment: None Past Medical History PAST MEDICAL HISTORY: Schizophrenia Surgical History: Denies all surgeries Family History Family History: Reviewed,noncontributory to illness Social History Smoker: Cigarettes, Less Than 1 Pack/Day Alcohol: Occasionally Drugs: Marijuana, Methamphetamine Lives In: Homeless Constitutional: reports: weakness; denies: chills, diaphoresis, fatigue, fever, malaise, sweats, others EENTM: denies: blurred vision, double vision, ear bleeding, ear discharge, ear drainage, ear pain, ear ringing, eye pain, eye redness, hearing loss, mouth pain, mouth swelling, nasal discharge, nose bleeding, nose congestion, nose pain, photophobia, tearing, throat pain, throat swelling, voice changes, others Respiratory: denies: cough, hemoptysis, orthopnea, SOB at rest, shortness of breath, SOB with excertion, stridor, wheezing, others Cardiovascular: reports: chest pain; denies: dizzy spells, diaphoresis, Dyspnea on exertion, edema, irregular heart beat, left arm pain, lightheadedness, palpitations, PND, syncope, others Gastrointestinal: denies: abdomen distended, abdominal pain, blood streaked bowels, constipated, diarrhea, dysphagia, difficulty swallowing, hematemesis, melena, nausea, poor appetite, poor fluid intake, rectal bleeding, rectal pain, vomiting, others Genitourinary: denies: burning, dysuria, flank pain, frequency, hematuria, incontinence, penile discharge, penile sore, pain, testicle pain, testicle swelling, urgency, others Neurological: denies: dizziness, fainting, headache, left sided numbness, left sided weakness, numbness, paresthesia, pre-existing deficit, right sided numbness, right sided weakness, seizure, speech problems, tingling, tremors, weakness, others Musculoskeletal: denies: back pain, gout, joint pain, joint swelling, muscle pain, muscle stiffness, neck pain, others Integumetry: denies: bruises, change in color, change in hair/nails, dryness, laceration, lesions, lumps, rash, wounds, others Allergic/Immunocompromised: denies: Difficulty Healing, Frequent Infections, Hives, Itching, others Hematologic/Lymphatic: denies: anemia, blood clots, easy bleeding, easy bruising, swollen glands, others Endocrine: denies: excessive hunger, excessive sweating, excessive thirst, excessive urination, flushing, intolerance to cold, intolerance to heat, unexplained weight gain, unexplained weight loss, others Psychiatric: denies: anxiety, bipolar disorder, depression, hopeless, panic disorder, schizophrenia, sleepless, suicidal, others All Other Systems: Reviewed and Negative Physical Exam General Appearance: No Apparent Distress HEENT: Normal ENT Inspection, Pharynx Normal, TMs Normal Neck: Full Range of Motion, Non-Tender, Normal, Normal Inspection Respiratory: Chest Non-Tender, Lungs Clear, No Accessory Muscle Use, No Respiratory Distress, Normal Breath Sounds Cardiovascular: No Edema, No JVD, No Murmur, No Gallop, Normal Peripheral Pulses, Regular Rate/Rhythm Breast Exam: Deferred Gastrointestinal: No Organomegaly, Non Tender, No Pulsatile Mass, Normal Bowel Sounds, Soft Genitalia: Deferred Pelvic: Deferred Rectal: Deferred Extremities: No calf tenderness, Normal capillary refill, Normal inspection, Normal range of motion, Non-tender, No pedal edema Musculoskeletal : Apperance: Normal Neurologic: Alert, department supervisor II-XII nml as Tested, No Motor Deficits, Normal Affect, Normal Mood, No Sensory Deficits Cerebellar Function: Normal Reflexes: Normal Skin: Dry, Normal Color, Warm Lymphatic: No Adenopathy Was a procedure done? Was a procedure done?: No Differential Dx Considerations may include: Generalized weakness, syncope, dehydration X-Ray, Labs, Meds, VS Vital Signs Date Time Temp Pulse Resp B/P (MAP) Pulse Ox O2 Delivery O2 Flow Rate FiO2 11/18/24 18:43 97.6 76 15 118/68 (85) 100 97.6 11/18/24 18:25 Room Air* 0 21 11/18/24 18:05 98.5 86 18 99/62 (74) 97 98.5 Lab Test 11/18/24 19:13 11/18/24 18:20 Range/Units Troponin I High Sensitivity 3 L 4 </=54 ng/L White Blood Count 7.0 4.4-10.8 10^3/uL Red Blood Count 4.37 L 4.5-5.90 10^6/uL Hemoglobin 13.5 13.5-17.5 g/dL Hematocrit 40.0 L 41.0-53.0 % Mean Corpuscular Volume 91.5 80.0-100.0 fL Mean Corpuscular Hemoglobin 31.0 28.0-32.0 pg Mean Corpuscular Hemoglobin Concent 33.9 32.0-36.0 g/dL Red Cell Distribution Width 13.1 11.8-14.3 % Platelet Count 328 140-450 10^3/uL Mean Platelet Volume 8.1 6.9-10.8 fL Neutrophils (%) (Auto) 54.5 37.0-80.0 % Lymphocytes (%) (Auto) 35.7 10.0-50.0 % Monocytes (%) (Auto) 6.9 0.0-12.0 % Eosinophils (%) (Auto) 2.1 0.0-7.0 % Basophils (%) (Auto) 0.8 0.0-2.0 % Neutrophils # (Auto) 3.8 1.6-8.6 10 ^3/uL Lymphocytes # (Auto) 2.5 0.4-5.4 10 ^3/uL Monocytes # (Auto) 0.5 0-1.3 10 ^3/uL Eosinophils # (Auto) 0.1 0-0.8 10 ^3/uL Basophils # (Auto) 0.1 0-0.2 10 ^3/uL Nucleated Red Blood Cells 0.1 % Sodium Level 142 136-145 mmol/L Potassium Level 4.2 3.5-5.1 mmol/L Chloride Level 109 H 98-107 mmol/L Carbon Dioxide Level 27 20-31 mmol/L Anion Gap 6 5-15 Blood Urea Nitrogen 11 9-23 mg/dL Creatinine 0.93 0.700-1.30 mg/dL Glomerular Filtration Rate Calc 115 >90 mL/min BUN/Creatinine Ratio 11.8 10.0-20.0 Serum Glucose 114 H 74-106 mg/dL Calcium Level 8.4 L 8.7-10.4 mg/dL Current Medications Medications (Trade) Dose Ordered Sig/Ayden Route Start Time Stop Time Status Last Admin Aspirin 162 mg ONCE ONCE PO 11/18/24 18:00 11/18/24 18:23 DC 11/18/24 18:22 Sodium Chloride 1,000 ml @ 500 mls/hr Q2H ONCE IVB 11/18/24 18:00 11/18/24 19:59 DC 11/18/24 18:17 Chest x-ray is negative The patient was given aspirin 162 mg The patient was L bolus of normal saline. The CBC is within normal limits The chemistry panel is within normal limits The troponin level is negative The has a troponin level was negative The patient is being discharged The patient will follow up with the primary care doctor The patient will return to the emergency department's the condition worsens Images Reviewed?: Images reviewed and evaluated by me Time of 1ST Reevaluation: 18:21 Reevaluation 1ST: Improved Patient Education/Counseling: Diagnosis, Treatment, Prognosis, Need For Follow Up Family Education/Counseling: No Family Present SEPSIS Sepsis Screen Physician Orders Chest Portable (11/18/24 17:54) Heplock Iv (11/18/24 17:54) Marine Electrician Apprentice (11/18/24 17:54) Blood Pressure (11/18/24 17:54) Pulse Oximetry (11/18/24 17:54) Urinalysis (11/18/24 17:54) Electrocardigram (11/18/24 17:54) Troponin-I Hs (11/18/24 20:54) Electrocardigram (11/18/24 18:54) Electrocardigram (11/18/24 20:54) Vital Signs Date Time Temp Pulse Resp B/P (MAP) Pulse Ox O2 Delivery O2 Flow Rate FiO2 11/18/24 18:43 97.6 76 15 118/68 (85) 100 97.6 11/18/24 18:25 Room Air* 0 21 11/18/24 18:05 98.5 86 18 99/62 (74) 97 98.5 Laboratory Tests Test 11/18/24 18:20 White Blood Count 7.0 10^3/uL (4.4-10.8) Medications Medications Dose Ordered Sig/Ayden Route Start Time Stop Time Status Last Admin Dose Admin Aspirin 162 mg ONCE ONCE PO 11/18/24 18:00 11/18/24 18:23 DC 11/18/24 18:22 Sodium Chloride 1,000 ml @ 500 mls/hr Q2H ONCE IVB 11/18/24 18:00 11/18/24 19:59 DC 11/18/24 18:17 Departure 1 Departure Time of Disposition: 20:38 Impression: Primary Impression: Episode of syncope Qualified Codes: R55 - Syncope and collapse Disposition: 01 HOME / SELF CARE / HOMELESS Condition: Fair Discharged With: Self Critical Care Note Critical Care Time?: No Stability Stability form required: No Heart Score Heart Score: Heart Score Response (Comments) Value History N/A 0 EKG N/A 0 Age N/A 0 Risk Factors N/A 0 Troponin N/A 0 Total 0 I personally scribed for GELY HARRISON MD ([email or web address]) on 11/18/24 at 18:09. Electronically submitted by Isreal Washington ([email or web address]). GELY HARRISON MD Nov 18, 2024 18:09
[2024-11-18] MEDS: SODIUM CHLORIDE 0.9% 1,000 ML IVB ONE (18:17)
[2024-11-18 18:32] LABS: Hematocrit 40.0 % (41.0-53.0); Hemoglobin 13.5 g/dL (13.5-17.5); Mean Corpuscular Hemoglobin 31.0 pg (28.0-32.0); Mean Corpuscular Volume 91.5 fL (80.0-100.0); Nucleated Red Blood Cells % 0.1 %
[2024-11-18 18:40] LABS: Potassium 4.2 mmol/L (3.5-5.1); Sodium 142 mmol/L (136-145)
[2024-11-18 18:41] LABS: Anion Gap 6 (5-15); Calcium 8.4 mg/dL (8.7-10.4); Carbon Dioxide 27 mmol/L (20-31); Chloride 109 mmol/L (98-107)
[2024-11-18 18:43] VITALS: BP 118/68; PULSE 76; RESP 15; TEMP 97.6; O2SAT 100
[2024-11-18 18:46] LABS: BUN/Creatinine Ratio 11.8 (10.0-20.0); Blood Urea Nitrogen 11 mg/dL (9-23)
[2024-11-18 18:47] LABS: Glucose 114 mg/dL (74-106)
--- NOTE | 2024-11-18 19:02 | DVH ---
CHEST RADIOGRAPH Indication: syncope Technique: XY CHEST PORTABLE Comparison: None FINDINGS: The cardiac silhouette is unremarkable. The lungs demonstrate no pulmonary airspace consolidation. Th e pulmonary vasculature is unremarkable. There is no pleural effusion. There is no pneumothorax. IMPRESSION: No pulmonary airspace consolidation.
== END 2024-11-18 21:15 | disposition home or self-care (01) ==
LOC: EDBD 17:50 → ER 17:50
DX: R55 Syncope and collapse (principal); F17.210 Nicotine dependence, cigarettes, uncomplicated; F20.9 Schizophrenia, unspecified; Z59.00 Homelessness unspecified; Z88.0 Allergy status to penicillin
CPT/HCPCS: 36415; 71045; 80048; 82947; 84484; 85025

== ENCOUNTER 2024-11-19 02:03 | Emergency (ER) | payer MEDICAID ==
[~2024-11-19] VITALS: Ht 172.7 cm; Wt 97.5 kg
--- NOTE | 2024-11-19 02:17 | ED.PDOC ---
Psychiatric HPI Comments 29 year old male presents to the ED with a chief complaint of suicidal ideation onset today (11/19/24). Patient states he is currently experiencing suicidal ideation, has no plan. He is also experiencing auditory hallucinations. Patient was seen in this ED yesterday, (11/18/24) due to chest discomfort, was discharge a few hours after with negative workup. PMHx schizophrenia. Denies homicidal ideation, chest pain, shortness of breath, dizziness, nausea, vomiting, fever, chills. No other symptoms or modifying factors present at this time. Time Seen by MD: 02:10 Primary Care Provider: THUAN Reviewed Notes: Medications, Allergies Information Source: Patient Mode of Arrival: Ambulatory Severity of Mental Status: Moderate Severity of Symptoms: Moderate Timing: Hours Duration: Since onset Prehospital treatment: None Presents with: Suicidal Ideation Ingestion: None Circumstance: None History of: Schizophrenia Quality: Hallucinations Associated signs and symptoms: Hallucinations Past Medical History PAST MEDICAL HISTORY: Schizophrenia Surgical History: Denies all surgeries Family History Family History: Reviewed,noncontributory to illness Social History Smoker: Cigarettes, Less Than 1 Pack/Day Alcohol: Occasionally Drugs: Marijuana, Methamphetamine Lives In: Homeless Constitutional: denies: chills, diaphoresis, fatigue, fever, malaise, sweats, weakness, others EENTM: denies: blurred vision, double vision, ear bleeding, ear discharge, ear drainage, ear pain, ear ringing, eye pain, eye redness, hearing loss, mouth pain, mouth swelling, nasal discharge, nose bleeding, nose congestion, nose pain, photophobia, tearing, throat pain, throat swelling, voice changes, others Respiratory: denies: cough, hemoptysis, orthopnea, SOB at rest, shortness of breath, SOB with excertion, stridor, wheezing, others Cardiovascular: denies: chest pain, dizzy spells, diaphoresis, Dyspnea on exertion, edema, irregular heart beat, left arm pain, lightheadedness, palpitations, PND, syncope, others Gastrointestinal: denies: abdomen distended, abdominal pain, blood streaked bowels, constipated, diarrhea, dysphagia, difficulty swallowing, hematemesis, melena, nausea, poor appetite, poor fluid intake, rectal bleeding, rectal pain, vomiting, others Genitourinary: denies: burning, dysuria, flank pain, frequency, hematuria, incontinence, penile discharge, penile sore, pain, testicle pain, testicle swelling, urgency, others Neurological: denies: dizziness, fainting, headache, left sided numbness, left sided weakness, numbness, paresthesia, pre-existing deficit, right sided numbness, right sided weakness, seizure, speech problems, tingling, tremors, weakness, others Musculoskeletal: denies: back pain, gout, joint pain, joint swelling, muscle pain, muscle stiffness, neck pain, others Integumetry: denies: bruises, change in color, change in hair/nails, dryness, laceration, lesions, lumps, rash, wounds, others Allergic/Immunocompromised: denies: Difficulty Healing, Frequent Infections, Hives, Itching, others Hematologic/Lymphatic: denies: anemia, blood clots, easy bleeding, easy bruising, swollen glands, others Endocrine: denies: excessive hunger, excessive sweating, excessive thirst, excessive urination, flushing, intolerance to cold, intolerance to heat, unexplained weight gain, unexplained weight loss, others Psychiatric: reports: suicidal, others (auditory hallucinations); denies: anxiety, bipolar disorder, depression, hopeless, panic disorder, schizophrenia, sleepless All Other Systems: Reviewed and Negative Physical Exam General Appearance: Normal HEENT: Normal ENT Inspection, Pharynx Normal, TMs Normal Neck: Full Range of Motion, Non-Tender, Normal, Normal Inspection Respiratory: Chest Non-Tender, Lungs Clear, No Accessory Muscle Use, No Respiratory Distress, Normal Breath Sounds Cardiovascular: No Edema, No JVD, No Murmur, No Gallop, Normal Peripheral Pulses, Regular Rate/Rhythm Breast Exam: Deferred Gastrointestinal: No Organomegaly, Non Tender, No Pulsatile Mass, Normal Bowel Sounds, Soft Genitalia: Deferred Pelvic: Deferred Rectal: Deferred Extremities: No calf tenderness, Normal capillary refill, Normal inspection, Normal range of motion, Non-tender, No pedal edema Musculoskeletal : Apperance: Normal Neurologic: Alert, coding specialist II-XII nml as Tested, No Motor Deficits, Normal Affect, Normal Mood, No Sensory Deficits Cerebellar Function: Normal Reflexes: Normal Skin: Dry, Normal Color, Warm Lymphatic: No Adenopathy Was a procedure done? Was a procedure done?: No Psych Differential Dx Psych. Differential Dx: Suicidal X-Ray, Labs, Meds, VS Vital Signs Date Time Temp Pulse Resp B/P (MAP) Pulse Ox O2 Delivery O2 Flow Rate FiO2 11/19/24 23:37 99/55 (70) 11/19/24 13:05 97.7 69 15 91/53 (66) 98 97.7 11/19/24 04:00 97.7 82 16 102/75 (84) 97 97.7 11/19/24 04:00 82 16 97 Room Air* 0 21 11/19/24 02:03 98.3 81 18 116/66 (83) 99 98.3 Lab Test 11/19/24 02:14 Range/Units White Blood Count 7.2 4.4-10.8 10^3/uL Red Blood Count 4.29 L 4.5-5.90 10^6/uL Hemoglobin 13.6 13.5-17.5 g/dL Hematocrit 39.4 L 41.0-53.0 % Mean Corpuscular Volume 92.0 80.0-100.0 fL Mean Corpuscular Hemoglobin 31.7 28.0-32.0 pg Mean Corpuscular Hemoglobin Concent 34.5 32.0-36.0 g/dL Red Cell Distribution Width 13.5 11.8-14.3 % Platelet Count 317 140-450 10^3/uL Mean Platelet Volume 8.1 6.9-10.8 fL Neutrophils (%) (Auto) 54.6 37.0-80.0 % Lymphocytes (%) (Auto) 36.9 10.0-50.0 % Monocytes (%) (Auto) 5.6 0.0-12.0 % Eosinophils (%) (Auto) 2.1 0.0-7.0 % Basophils (%) (Auto) 0.8 0.0-2.0 % Neutrophils # (Auto) 3.9 1.6-8.6 10 ^3/uL Lymphocytes # (Auto) 2.7 0.4-5.4 10 ^3/uL Monocytes # (Auto) 0.4 0-1.3 10 ^3/uL Eosinophils # (Auto) 0.2 0-0.8 10 ^3/uL Basophils # (Auto) 0.1 0-0.2 10 ^3/uL Nucleated Red Blood Cells 0.0 % Sodium Level 142 136-145 mmol/L Potassium Level 4.2 3.5-5.1 mmol/L Chloride Level 110 H 98-107 mmol/L Carbon Dioxide Level 25 20-31 mmol/L Anion Gap 7 5-15 Blood Urea Nitrogen 12 9-23 mg/dL Creatinine 1.12 0.700-1.30 mg/dL Glomerular Filtration Rate Calc 92 >90 mL/min BUN/Creatinine Ratio 10.7 10.0-20.0 Serum Glucose 133 H 74-106 mg/dL Calcium Level 8.8 8.7-10.4 mg/dL Salicylates Level < 3.0 -30 mg/dL Acetaminophen Level < 2.0 L 10.0-20.0 UG/ML Plasma/Serum Blood Alcohol < 3.0 <10 mg/dL Time of 1ST Reevaluation: 02:40 Reevaluation 1ST: Unchanged Patient Education/Counseling: Diagnosis, Treatment, Prognosis Family Education/Counseling: No Family Present Additional Information Previous visits reviewed: 11/18/24 The following tests were ordered, and results were reviewed by me: BMP, DRUG SCREEN, BLOOD ALCOHOL, ACETAMINOPHEN, CBC, SALICYLATE, UA I discussed treatment and results with medical personnel and: patient Comprehensive systems review obtained and negative except for what is stated in the HPI. Departure 1 Departure Time of Disposition: 05:26 (Patient is medically cleared. Patient is still pending placement.) Impression: Primary Impression: Suicide ideation Disposition: 30 STILL A PATIENT Condition: Serious Critical Care Note Critical Care Time?: No Stability Stability form required: No I personally scribed for MARIJA MORALES MD ([email or web address]) on 11/19/24 at 02:17. Electronically submitted by Noreen Esposito ([email or web address]). I personally scribed for MARIJA MORALES MD ([email or web address]) on 11/19/24 at 02:22. Electronically submitted by Noreen Esposito ([email or web address]). MARIJA MORALES MD Nov 19, 2024 02:17
[2024-11-19 02:33] LABS: Hematocrit 39.4 % (41.0-53.0); Hemoglobin 13.6 g/dL (13.5-17.5); Mean Corpuscular Hemoglobin 31.7 pg (28.0-32.0); Mean Corpuscular Volume 92.0 fL (80.0-100.0); Nucleated Red Blood Cells % 0.0 %
[2024-11-19 02:34] LABS: Potassium 4.2 mmol/L (3.5-5.1); Sodium 142 mmol/L (136-145)
[2024-11-19 02:35] LABS: Anion Gap 7 (5-15); Carbon Dioxide 25 mmol/L (20-31)
[2024-11-19 02:36] LABS: Calcium 8.8 mg/dL (8.7-10.4)
[2024-11-19 02:41] LABS: BUN/Creatinine Ratio 10.7 (10.0-20.0); Blood Urea Nitrogen 12 mg/dL (9-23)
[2024-11-19 02:56] LABS: Acetaminophen < 2.0 UG/ML (10.0-20.0); Salicylate < 3.0 mg/dL (-30)
[2024-11-19 02:57] LABS: Chloride 110 mmol/L (98-107); Glucose 133 mg/dL (74-106)
--- NOTE | 2024-11-19 03:44 | DVHINCON2 ---
Date of Service if different f: Nov 19, 2024 Time of Service: 03:30 Consult Consult Note PSYCHIATRY ED NEW CONSULT HPI: 29 yo pt with unclear PPH presents to ED BIB self for safety, psychiatric stabilization, and possible med initiation/optimization in setting of homelessness and passive SI. Psychiatry consulted for safety evaluation and recommendations in context of current presentation. OF note, pt with recent several ED admission for similar cc/presentation Pt reports over past several weeks experiencing some depressed mood, hopelessness/helplessness, low self-worth, some decline in self-care and unspecific anxiety symptoms and NC/NT AH although some symptoms appear chronic in nature. Also intermittent SI that are fleeting with no plan/intent. Identifies primary stress as unemployment, inadequate housing, limited support system, etc. Denies HI/VH/paranoia/catatonic/perceptual disturbances. No overt manic, psychotic, MDD, cognitive, dissociative phenomena, panic, OCD, PTSD, or somatic symptoms noted Does not have active outpt MH services established at this time. Currently not on any psychotropic agents for past several years, prior psych med trials include olanzapine Freq ETOH/thc use including use prior to admission. denies IDU, never previously in any drug/etoh tx programs in past Single, no children, unemployed/ssi, chronically homeless, no/limited support system noted Unknown trauma hx. Denies FH of psych hospitalizations, suicide attempts, or completed suicides No acute medical/chronic pain issues, hx of seizures/TBI, or recent head i njuries, NKDA Some hx of SI/SA via OD, no hx of SIB resulting in several prior psych hospitalizations but none in several years. Denies history of violence, aggression, or assaultive behaviors. Denies recent hx of impulsivity, attention seeking behaviors, anger outbursts, emotional dysregulation, mood reactivity, or engaging in risky/reckless behaviors. Denies any legal problems. Does not have access to firearms MSE: General Appearance/Behavior: Alert/awake; appears stated age, marginal grooming/hygiene; calm/polite and cooperative, fair eye contact, no PMA/PMR Speech: coherent, rrr Thought Process: L/L/GD, bit concrete Thought Content: Abnormal Thoughts/Perceptions: denies dissociative symptoms Homicidality / Violent Thoughts: adamantly denies HI Suicidality: passive SI Hallucinations: denies AVTH Delusions: denies paranoia, persecutory, or grandiose delusions Obsessions /compulsions: None Judgment/Insight: fair/fair Mood & Affect: "bit depressed" with mood-congruent, somewhat restricted/appro priate Orientation: oriented x 3 Attention/Concentration: appears intact Cognition: grossly intact Assessment: 29 yo pt with unclear PPH presents to ED BIB self for safety, psychiatric stabilization, and possible med initiation/optimization in setting of homelessness and passive SI. OF note, pt with recent several ED admission for similar cc/presentation Pt currently expressing some passive SI in setting of several ongoing life stressors (see hpi). Limited protective factors presently. Not on any psy chotropics which may be contributing to current symptoms. No outpt MH services at present. Pt agrees to talk with staff instead of acting on any suicidal feelings while in ED. Pt medically cleared in ED Acute safety risk remains low and is appropriate for inpatient psychiatric admission for further safety, psychiatric stabilization, and possible medication initiation. Pt willing to transfer to inpt psych facility voluntarily. Consider 5150 hold for DTS ONLY if needed for transfer or if no voluntary beds are available Primary Diagnosis: Adjustment disorder with depressed mood and anxiety. Depressive disorder unspecified. THC use d/o, unspecified Recommend VOL transfer to inpt psych facility for higher level of care 1:1 sitter is not recommended Maintain suicide/elopement precautions Defer any psychotropic med initiation to accepting inpt psych facility If patient later refuses voluntary hospitalization/ requests to be discharged from ED prior to transfer or if no voluntary beds are available, pt does NOT need psych reassessment or 5150 hold. Rather SW consultation for housing resources would be appropriate Pt verbalized understanding and is receptive to above tx plan This case was discussed with ED nurse/provider and all parties in agreement with above tx plan Piero Garcia MD Plan discussed with: Patient PIERO GARCIA MD Nov 19, 2024 03:44
[2024-11-19 04:00] VITALS: PULSE 82; RESP 16; O2SAT 97
[2024-11-20 10:00] VITALS: BP 122/80; PULSE 74; RESP 14; TEMP 98.8; O2SAT 100
== END 2024-11-20 10:59 | disposition left against medical advice (07) ==
LOC: ER 02:03
DX: R45.851 Suicidal ideations (principal); R07.89 Other chest pain; R44.0 Auditory hallucinations; F20.9 Schizophrenia, unspecified; F17.210 Nicotine dependence, cigarettes, uncomplicated
CPT/HCPCS: 36415; 80048; 80320; 80329; 85025